=== PATIENT | male | born 1960 | race Caucasian/White ===

== ENCOUNTER 2019-10-20 01:30 | Inpatient (IN) | payer BC, OTHER ==
[~2019-10-20] VITALS: Ht 185.4 cm; Wt 116.1 kg
--- NOTE | ~2019-10-20 | DS ---
[facility] [address] [place], [place] [address] Draft ADMISSION DATE: 10/20/2019 DISCHARGE DATE: 10/28/2019 REASON FOR ADMISSION: This 59-year-old white man has had increasing complaints of abdominal pain, presented to the emergency room, was evaluated by Dr. Hampton on October 20, 2019, showing free air on plain chest x-ray and subsequent CT scan of the abdomen showing considerable amount of free air and probable perforated diverticulitis. He was noted to have an elevated D-dimer of greater than 5000. His pulmonary CT angiogram showed no evidence of pulmonary embolism. He had generalized peritonitis and lactic acid level of 6.9, and was admitted by ky for further evaluation and care. PERTINENT PHYSICAL EXAMINATION: GENERAL: This is a tall white male with a torres sheridan. He looked moderately uncomfortable. HEENT: Mucous membranes are very dehydrated and dry. Trachea midline. CHEST: Clear. VITAL SIGNS: Respiratory rate was 24, pulse oximetry 93% on 4 L nasal cannula. ABDOMEN: Obese, but not excessively distended. Incisions from prior laparoscopic cholecystectomy were noted. Palpation showed generalized tenderness and firmness without focal mass or focal tenderness. CT scan showed multiple loculated pockets of fluid, intraabdominal inflammatory changes and probable perforated diverticulitis. HOSPITAL COURSE: He was aggressively fluid resuscitated and given broad-spectrum antibiotic meropenem. He underwent laparoscopy for intended laparoscopic washout and placement of drains, was found to have 2 profound level of inflammation and problem and was converted to laparotomy. He was noted to have multiple interloop abscesses of the abdomen including a right subphrenic abscess. Complete washout of the abdominal contents was undertaken and resection of perforated sigmoid diverticulitis with end colostomy (Jose Miguel procedure) was performed. Mobilization of splenic flexure was required. Placement of a 24-Italian BRAD gastrostomy tube was also undertaken. The operation was prolonged, complicated, and difficult. He was oliguric entering the operating room and had 100 mL of urine during the course of operation. He was returned to the Intensive Care Unit where his lactic acid level was improved, but he remained oliguric. He did require inotropic support during the course of operation to sustain his blood pressure and this was maintained postoperatively with Levophed. His urine output was responsive to multiple fluid bolus. His creatinine postoperatively was noted to be 2.41 with lactic acid of 3.9. His white count was markedly elevated to 20.6 with a bandemia of 81%. PATIENT NAME: HEATHER COREAS DISCHARGE SUMMARY DATE OF : 58 REPORT #: [id number] PHYSICIAN: EULOGIO LARES MD PCP: NO PRIMARY CARE PHYSICIAN REPORT IS CONFIDENTIAL AND NOT TO BE RELEASED WITHOUT AUTHORIZATION [facility] [address], [place] [address] Draft With persistent fluid administration and blood pressure support, his urine output began to improve and he became more alert and oriented. His creatinine began to decrease and his intravenous pressor support was able to be weaned off. He was maintained on single agent broad-spectrum antibiotic meropenem with the addition of Diflucan. He had decompression of his stomach with a gastrostomy tube. He was maintained with heparin subcutaneously and not with sequential compression device stockings as his D-dimer had been elevated and all the CT abdomen. CT pulmonary angiogram showed no sign of pulmonary embolus. Concern was maintained for possible deep venous thrombosis, for which sequential compression device stockings would likely result in embolism. He had progressive improvement, was able to leave the Intensive Care Unit where he was continually supported with IV fluids and ultimately monitoring of his ostomy for function. Drains that were placed in the subphrenic and pelvic area cleared and were removed. Once the air presented in the ostomy, his G-tube was capped and he was advanced to a liquid and ultimately a regular diet without problem. By the day of discharge, he is ambulating well. He has bilateral leg edema, which was evaluated by duplex ultrasound showing no sign of deep venous thrombosis. This was considered likely related to fluid administered during the course of resuscitation and will be addressed with Jen as an outpatient. He is managing his colostomy site well. The midline incision is healing well. He was transitioned from meropenem antibiotic to Cipro and Flagyl during the course of his hospitalization and will be discharged on those medications as well. He was restarted on his metformin once fully recovering. Followup plan, he is return to see me in approximately one month. Home health is organized for him to have assistance with his ostomy, though he is managing it pretty well already himself. As regards to his G-tube, he will flush that on a daily basis with tap water to maintain its patency. He understands that in time the colostomy will be able to be reversed. DISCHARGE MEDICATIONS: 1. Cipro 500 mg p.o. b.i.d., #14. 2. Flagyl 250 mg one p.o. t.i.d. with meals, #21. 3. Motrin 600 mg p.o. q.6 hours as needed for pain, #60. 4. Tylenol Extra Strength 500 mg two tablets p.o. q.6 hours as needed for pain, #60. 5. Lasix 20 mg p.o. daily, #10. 6. Potassium chloride 20 mEq p.o. daily, #10. 7. He will resume his usual medication of multivitamin daily. PATIENT NAME: HEATHER COREAS DISCHARGE SUMMARY DATE OF : 58 REPORT #: [id number] PHYSICIAN: EULOGIO LRAES MD PCP: NO PRIMARY CARE PHYSICIAN REPORT IS CONFIDENTIAL AND NOT TO BE RELEASED WITHOUT AUTHORIZATION [facility] [address] [place], [place] [address] Draft 8. Lisinopril hydrochlorothiazide 20/12.5 one p.o. daily. 9. Omeprazole 20 mg p.o. daily. 10. Metformin 500 mg p.o. b.i.d. DISCHARGE DIAGNOSES: 1. Severe sepsis related to perforated diverticulitis with multiple intraabdominal abscesses including right subphrenic abscess. 2. Status post laparoscopic evaluation with lavage, conversion to open laparotomy with drainage of intraabdominal abscesses, placement of drains, sigmoid resection with end colostomy and placement of gastrostomy tube. 3. History of hyperglycemia. 4. Hypertension. 5. Distant history of cholecystectomy. 6. Preoperative elevated D-dimer. Negative CT angiogram of lungs and subsequent negative venous duplex of lower extremities for deep venous thrombosis. MD RAYNA Astudillo/MODL /[id number] cc: MD Clemencia Martínez MD Daniel Adelman, PA [facility] Sayra Caballero MD Copies: SANCHEZ BANGURA MD, KELLY DEAN MD PATIENT NAME: HEATHER COREAS DISCHARGE SUMMARY DATE OF : 58 REPORT #: [id number] PHYSICIAN: EULOGIO LARES MD PCP: NO PRIMARY CARE PHYSICIAN REPORT IS CONFIDENTIAL AND NOT TO BE RELEASED WITHOUT AUTHORIZATION [address] [place], [place] [address] Draft SAYRA CABALLERO MD ~ PATIENT NAME: HEATHER COREAS DISCHARGE SUMMARY DATE OF : 58 REPORT #: [id number] PHYSICIAN: EULOGIO LARES MD PCP: NO PRIMARY CARE PHYSICIAN REPORT IS CONFIDENTIAL AND NOT TO BE RELEASED WITHOUT AUTHORIZATION
[~2019-10-20 01:30] MED LIST: ASPIR 8181 MG PO; FLAGYL500 MG PO; HYDROCODON-ACE1 EA10 PO; LEVAQUIN750 MG PO; LISINOPRIL-HCT1 EACH PO; METFORMIN HCL500 MG PO; MULTI VITAMIN1 EACH PO; NORCO 10-325 T1 EACH PO; NYSTATIN-TRIAMC15 GM TOP; OMEPRAZOLE20 MG PO; OSTERA TABLET1 EACH PO; SIMVASTATIN40 MG PO; ZOFRAN ODT8 MG PO
[2019-10-20] MEDS ORDERED: DICYCLOMINE HCL20 MG PO (01:39)
--- NOTE | 2019-10-20 09:15 | NUR ---
In to speak with Ty. He has not returned from surgery yet.
--- NOTE | 2019-10-20 10:42 | NUR ---
10/20/19 1042 Sneha Preciado 1022-PT ARRIVES TO PACU ON 6 L VIA MASK. PT RESPONSIVE TO VERBAL STIMULUS AND FALLS BACK ASLEEP EASILY. MULTIPLE DRAINS, COLOSTOMY SITE, MIDLINE INSCISION, G TUBE, NG TUBE AND BOOKER CATH IN PLACE. PT DENIES PAIN/NAUSEA. PT'S SKIN COLD AND CLAMMY. WARM AIR AND WARM BLANKETS PROVIDED. 1040-PT RESTS IN BED WITH EYES OPEN. PT WAKES TO VERBAL STIMULUS AND FOLLOWS COMMANDS. SNORING HEARD. FOGGING IN MASK PRESENT. VSS. TACHYCARDIA NOTED AND DRAFTING TEACHER AWARE IS
--- NOTE | 2019-10-20 11:45 | NUR ---
PT ARRIVED FROM PACU.REPORT RECEIVED FROM RUBBING BED OPERATOR. LEE DRAINS SHOWING SERIOUS ANGUINOUS DRANAGE. BOOKER CATHETER DRINAING DARK YELLOW URINE. G-TUBE DRAINING BROWN FLUID TO GRAVITY BAG. OSTOMY BAG SHOWS PINK/RED STOMA, NO DRAINAGE NOTED YET, GRAVITY BAG IN PLACE. MIDLNE INCISION DRESSING INTACT WITH SMALL AMOUNT OF SHADOWING. PT REPORTS 2/10 PAIN AND DENIES NEED FOR PAIN MEDICATION. PT REPORTS NAUSEA. SEE MAR FOR MEDICAITON GIVEN. BLOOD PRESSURES SOFT, CONSULTED, ORDERS PLACED FOR PRN DRIP. WILL CONTINUE TO MONITOR. PT WEANED TO 3L O2 BY NC AT 1150. DOPPLER PUSES TO LOWER EXREMITIES. BRUSIES AND RUDDINESS NOTED TO BILATER LOWER EXTREMITIES, PT STATES "ITS FROM OLD FLEA BITES I SCRATCHED." IV FLUIDS STARTED. THIS RN AT BEDSIDE.
--- NOTE | 2019-10-20 12:00 | NUR ---
THIS RN REMAINS AT BEDSIDE. PT CONTINUES TO REPORTS 2/10 PAIN AND STATES "I DON'T NEED PAIN MEDICAITON UNTIL IT IS 4.5/10." BLOOD PRESSURES REMAIN STABLE. LEVOPHED DRIP NOT YET STARTED, WILL CONTINUE TO MONITOR. PT CONTINUE TO REPORT NAUSEA, PHENEGRAN GIVEN. PT REMAINS ON 3L O2 BY NC WITH O2 SATURATIONS ABOVE 92. DRESSING TO MID LINE INCISION UNCHANGED. PT DIAPHORETIC. BLOOD SUGAR TAKEN = 249. DRESING TO LEFT HAND IV LOOSE R/T DIAPHORESIS, DRESSING CHANGED PER PROTOCOL. LEE DRAINS, NG TUBE, OSTOMY AND G-TUBE UNCHANGED. THIS RN REMAINS AT BEDSIDE.
--- NOTE | 2019-10-20 12:28 | NUR ---
PT REPORTS DRY MOUTH, MOUTH SWAB PROVIDED. PT QUICKLY DRIFTS OFF TO SLEEP, SNORING NOTED. HOB ELEVATED TO 30 DEGREES. PT WEANED TO 1L O2 BY OXYMASK, O2 SATURATIONS REMAIN ABOVE 92%. PT REPORTS 5/10 PAIN (SEE MAR FOR MEDICATION GIVEN). PT DENIES NAUSEA. ASSESSMENT DONE. DRESSING TO MIDLINE INCISION REMAINS UNCHANGED. LEE DRAINS SHOWING SERIOUS ANGUINOUS DRAINAGE. 30ML SERIUOS ANGUINOUS DRAINAGE REMOVED FROM LEFT LEE DRAIN #2. BOOKER CATHETER DRINAING DARK YELLOW URINE. G-TUBE DRAINING BROWN FLUID TO GRAVITY BAG. OSTOMY BAG SHOWS PINK/RED STOMA, NO DRAINAGE NOTED YET, GRAVITY BAG IN PLACE. PT RESTING WITH EYES CLOSED. SNORING NOTED. BED RAILS UP. CALL LIGHT WITHIN REACH.
--- NOTE | 2019-10-20 13:30 | NUR ---
ASSESMENT DUE. PT REPORTS 5/10 PAIN, SEE MAR FOR MEDICAITON GIVEN. PT DENIES NAUSEA. MID LINE DRESSING SHOWS SMALL AMOUNT OF SHADOWING. LEE DRAIN #1 DRINAING SEROUSANGUINOUS DRAINAGE, LEE DRAIN #2 DRAINING SERIOUS ANGUINOUS DRAINAGE. URINE OUTPUT MINIMAL. MD CURRENTLY IN PROCEEDURE, CALL OUT TO MD, AWAITING RETURN CALL. PT PULLED IV IN LEFT HAND. GAUZE AND COBAN APPLIED. PT REMAINS ON 1 LITER O2 BY OXYMASK, O2 SATURATIONS ABOVE 92%. ABX STARTED (INFUSING VIA RAC IV). BED RAILS UP. CALL LIGHT WITHIN REACH.
--- NOTE | 2019-10-20 14:14 | NUR ---
norepi drip started at 4 mcg/min for BP of 84/48 (57).
--- NOTE | 2019-10-20 14:30 | NUR ---
ASSESSMENT DUE. IV STARTED IN LEFT HAND PER PROTOCOL, BLOOD RETURN NOTED. LEFT HAND INFUSING LR FLUIDS, ABX INFUSING THROUGH RIGHT AC IV. LEVOPHED DRIP INFUSING THROUGH LAC IV AT A RATE OF 4MCG/MIN. BP NOW 99/59 (66). PT AWAKENS TO VOICE, REPORTS FEELING DIZZY. PT REPORTS 4/10 PAIN AND DENIES NEED FOR PAIN MEDICATIONS AT THIS TIME. PT WEANED TO [place] AIR WITH O2 SATURATIONS MAINTAINING ABOVE 90%. BED RAILS UP. CALL LIGHT WITHIN REACH.
--- NOTE | 2019-10-20 15:02 | EKG ---
[facility] [address] [place] [address] Signed Sinus tachycardia with occasional premature ventricular complexes Possible Left atrial enlargement Borderline ECG No previous ECGs available Confirmed by ZENON RUBY MD ([id number]) on 10/20/2019 3:02:41 PM Electronically Signed By: ZENON RUBY MD 10/20/19 1502 PATIENT NAME: HEATHER COREAS Electrocardiogram DATE OF : 58 PHYSICIAN: ZENON RUBY MD REPORT #: [id number] REPORT IS CONFIDENTIAL AND NOT TO BE RELEASED WITHOUT AUTHORIZATION
--- NOTE | 2019-10-20 15:04 | NUR ---
PT DROPS TO 88% ON ROOM AIR WHILE SLEEPING. PT PLACED BACK ON 1L O2 BY OXY MASK. PT REPORTS 6/10 PAIN, SEE MAR FOR MEDICAITON GIVEN. BED RAILS UP. CALL LIGHT WITHIN REACH. CONTINUING TO AWAIT CALL FROM MD FOR UPDATE REGARDING URINE OUTPUT.
--- NOTE | 2019-10-20 15:21 | NUR ---
PTS SON CALLIE CALLED WITH UPDATE. CALLIE STATES HIS QUESTIONS HAVE BEEN ANSWERED. DR. LARES RETURNED CALL, ORDERS FOR 500ML FLUID BOLUS NOW TO BE REPEATED IF URINE OUTPUT DOES NOT RESPOND. ORDERS PLACED.
--- NOTE | 2019-10-20 16:20 | NUR ---
AFTERNOON ASSESSMENT DUE. PT RESTING IN BED WITH EYES CLOSED, SNORNING NOTED. PT AWAKENS TO VOICE. REPORTS 6/10 PAIN, SEE MAR FOR MEDICATION GIVEN. DRAINS EMPTIED (SEE I/Os). BOOKER EMPTIED, SAMPLE SENT TO LAB. PT CONTINUES TO HAVE INSUFFICIENT URINE OUTPUT. 2ND 500ML BOULS STARTED PER MD ORDER. MD AWARE OF PT URINE OUTPUT. PT DENIES NAUSEA. MIDLINE INCISION SHOWS NO CHANGE. SMALL AMOUNT OF SHADOWING NOTED. PT CONTINUES TO BE DIAPHROETIC, MID LINE DRESING INTACT, BUT LOOSE. IV DRESSING TO RIGHT AC LOOSE, IV DRESSING CHANGED PER PROTOCOL. LEVOPHED DRIP REMAINS AT 4MCG/MIN WITH MAPs MAINTAINING ABOVE 65. PT COOL AND CLAMY. BED RAILS UP. CALL LIGHT WITHIN REACH.
--- NOTE | 2019-10-20 17:00 | NUR ---
THIS RN TO ROOM TO CHECK ON PT. PT REPORTS 4/10 PAIN AND DENIES NEED FOR PAIN MEDICAITON AT THIS TIME. URINE OUTPUT 18ML OVER THE PAST HOUR. LEVOPHED DRIP REMAINS AT 4MCG/MINUTE. UROMETER CATHETER BAG PLACED TO REPLACE REGULAR DRAINAGE BAG, STERILE TECHNIQUE USED. PT REMAINS COOL AND DIAPHORETIC. NO ADDITIONAL REQUESTS OR COMPLAINTS AT THIS TIME. CALL LIGHT WIHTIN REACH. BED RAILS UP.
--- NOTE | 2019-10-20 17:52 | NUR ---
MD CALLED AND UPDATED REGARDING URINE OUTPUT, DIAPHORESIS GENERAL PT CONDITION. ORDERS TO ADMISTER ADDITIONAL 500ML LR BOLUS. ORDERS ENTERED. ABX INFUSION COMPLETE. RIGHT AC IV SALINE LOCKED. ALCOHOL CAPS APPLIED. PT REPORTS 6/10 PAIN BUT DECLINES ADDIITONAL PAIN MEDICAITONS AT THIS TIME. PT AWAKE AND TELLING JOKES, QUICKLY FALLS BACK TO SLEEP, SNORING NOTED. NO ADDITIONAL REQUESTS OR COMPLAINTS. BED RAILS UP. CALL LIGHT IRENA CHASE.
--- NOTE | 2019-10-20 18:20 | NUR ---
PT RESTING IN BED. BOOKER EMPTIED OF 8ML URINE. MD AWARE. 500ML LR BOLUS STARTED. LEE DRAINS EMPTIED OF SERIOUS ANGUINOUS FLUID. G-TUBE DRAINING BROWN THICK MUCOUS, EMPTIED. MOUTH SWABS PROVIDED FOR PT RELATED TO "SOAR THROAT" AND DRY MOUTH. PT DENIES ADDITIONAL REQUESTS OR COMPLAINTS. CALL LIGHT IN PTS HAND.
--- NOTE | 2019-10-20 18:22 | NUR ---
PT HERE FOR PERFORATED BOWEL RELATED TO DIVERTICULITIS. SURGERY THIS SHIFT INCLUDING COLECTOMY AND G-TUBE PLACEMENT. PT REMAINS NPO WITH MOUTH SWABS AT BEDSIDE. NG TUBE DRAINING TO LOW INTERMITTANT SUCTION, 50ML OF DARK GREEN/BLACK DRAINAGE OUT THIS SHIFT. PT REMAINS ON 1L O2 BY OXYMASK, DROPS TO 88% WHEN SLEEPING ON ROOM AIR. MID LINE INCISION WITH ACTICOAT, OPSITE AND ESTRADA, INTACT, SMALL AMOUNT OF SHADOWING NOTED. PRN PAIN MEDICAITON GIVEN FOR 4-6/10 PAIN. [address] ON RIGHT AND LEFT SIDE OF ABDOMEN DRAINING SERIOUS ANGUINOUS DRAINGE. COLOSTOMY IN PLACE, STOMA PINK/RED, NO DRAINAGE THIS SHIFT. G-TUBE IN PLACE DRAINING BROWN MUCOUSY DRAINAGE TO GRAVITY BAG. BOOKER CATHETER DRAINING TO GRAIVTY, PLACEMENT HIGH FOR HYPOSPADIAS. URINE NOT QUANTITY SUFFICIENT THIS SHIFT, 500ML LR BOLUSES GIVEN X3. PT COOL, CLAMMY AND DIAPHORETIC. SCHEDULED IV ABX GIVEN. DOPLER PULSES FOUND TO LOWER EXTREMITIES. PT OREINTED BUT DROWSY. LEVOPHED DRIP IN PLACE FOR CARDIOVASCULAR SUPPORT, INFUSING AT 4MCG/MIN TO MAINTAIN MAP ABOVE 65. PTS FAMILY UPDATED. PT HAS YET TO USE CALL LIGHT.
--- NOTE | 2019-10-20 19:44 | NUR ---
SHIFT REPORT RECEIVED. PATIENT RESTING IN BED. APPEARS TO BE SLEEPING COMFORTABLY. LAST BP 113/60 (69), LEVOPHED TITRATED TO 3 MCG/MIN.
--- NOTE | 2019-10-20 19:45 | NUR ---
IN TO SEE ZACH. ORDER FOR REMOVAL OF NG TUBE RECEIVED. DISCUSSED POOR URINE OUTPUT. GOALS OF 10 - 20 ML/HR PER MD.
--- NOTE | 2019-10-20 20:30 | NUR ---
SPOKE WITH ABOUT PATIENT'S MIDLINE DRESSING NEEDING REPLACED. ORDERS TO REDRESS NEEDED AND USE OF ABD BINDER IF NECESSARY.
--- NOTE | 2019-10-20 21:00 | NUR ---
PATIENT SLEEPING SOUNDLY. WAKES EASILY WHEN RN ENTERS THE ROOM. NG TUBE REMOVED PER ORDERS FROM . PATIENT TOLERATED WELL. ICE CHIPS PROVIDED. PATIENT DENIES PAIN, NO NAUSEA. ABD IS MODERATELY DISTENDED. MIDLINE INCISION IS SATURATED IN CLEAR LIQUID. DRESSING REMOVED AND REPLACED WITH MEPILEX AND 2 OBSITES. LEE ON RIGHT EMPTIED FOR 25 ML SEROSANG FLUIDS. LEFT LEE HAD 60 ML SERSANG, WITH SMALL CLOTS. G TUBE IS DRAINING TO GRAVITY, 100 ML THICK BILE COLORED DRAINAGE. URINE OUTPUT 25 ML, BOOKER CARE DONE. IV FLUIDS PER ORDER, SITE WNL X3. LEVOPHED AT 2 MCG/MIN. MAP >65. PATIENT DENIES ANY NEEDS AT THIS TIME. WEARING 2L NC, O2 SAT 88% ON RA.
--- NOTE | 2019-10-20 21:00 | NUR ---
CALLED, ORDERS FOR 500 ML BOLUS RECEIVED PRN FOR URINE OUTPUT LESS THAN 20 ML/HR. REPEAT NEEDED. VERIFIED VIA REPEAT BACK.
--- NOTE | 2019-10-20 23:22 | NUR ---
PATIENT RESTING IN BED. AWAKE WHEN RN ENTERED ROOM. REPORTS FEELING MORE ALERT AND HAS BEEN EATING SOME ICE. ENOCURAGED TO GO SLOWLY. DENIES NAUSEA. REPORTS PAIN 5/10. STATES HE IS COMFORTABLE AND DENIES NEED FOR PRN PAIN MEDS OR AN ICE PACK AT THIS TIME. URINE OUTPUT 18 ML THE LAST HOUR. IV ABX INFUSING. LEVOPHED AT 2 MCG/MIN, LAST BP 101/68 (76). IV FLUIDS PER ORDER. SITES WNL X3.
--- NOTE | 2019-10-21 00:15 | NUR ---
PATIENT MORE ALERT THAN PREVIOUS. ORIENTED X3. NO NAUSEA. REPORTS PAIN 5/10, ICE PACKS APPLIED TO ABD PER REQUEST. DRESSING ON MIDLINE IS CDI, LEE DRAINS DRAINING WELL, SEROSANG OUTPUT. BLACK BILE COLORED MUCUS NOTED FROM G-TUBE. URINE OUTPUT MEETING 20 ML/HR GOAL. PATIENT EATING ICE CHIPS FOR COMFORT. DENIES ANY NEEDS AT THIS TIME.
--- NOTE | 2019-10-21 02:15 | NUR ---
PATIENT REPORTS DIFFICULTY SLEEPING NOW. ENCOURAGED TO REST TO AVOID GETTING DAYS AND NIGHTS SWITCHED. PATIENT REPORTS ADEQUATE PAIN CONTROL. NO NAUSEA. BP STABLE, LEVOPHED PLACED IN STAND BY AT THIS TIME.
--- NOTE | 2019-10-21 04:15 | NUR ---
PATIENT REPORTS SLEEPING OFF AND ON. APPEARS TO BE IN GOOD SPIRITS. ORIENTED X4. REPORTS PAIN 5/10, FRESH ICE PACKS APPLIED TO ABD. MIDLINE DRESSING CDI. DRESSINGS COVERING LEE DRAINS ARE INTACT. GAUZE AROUND G-TUBE, MINIMAL DRAINAGE. IV FLUIDS PER ORDER, SITE WNL. BP WNL WITHOUT PRESSOR AT THIS TIME. URINE OUTPUT CONTINUES TO MEET 20 ML/HR GOAL. PATIENT DENIES ANY NEEDS AT THIS TIME. CALL LIGHT IN REACH.
--- NOTE | 2019-10-21 05:40 | NUR ---
RIGHT SIDE LEE DRAINED FOR 25 ML SEROSANG OUTPUT. LEFT LEE DRAINED FOR 55 ML SEROSANG OUTPUT. G-TUBE DRAINING TO GRAVITY, 500 ML THICK BILE WITH SOME WHITE/CLEAR LUMPS. PATIENT REPORTS TOLERABLE PAIN LEVEL AT 5/[address] IN [address]. PATIENT DENIES ANY NEEDS.
--- NOTE | 2019-10-21 05:55 | NUR ---
PATIENT UPDATE PROVIDED TO . ORDERS RECEIVED FOR IV TYLENOL PRN PAIN. VERIFIED VIA REPEAT BACK METHOD.
--- NOTE | 2019-10-21 06:15 | NUR ---
PATIENT REPORTS PAIN 5/10 AND TOLERABLE. PRN TYLENOL PROVIDED PER ORDER. PATIENT EATING ICE AND DENIES ANY NAUSEA. ABD IS MODERATELY DISTENDED WITH HYPOACTIVE BOWEL SOUNDS. URIEN OUTPUT REACHING THE 20 ML/HR GOAL. PATIENT DENIES ANY NEEDS AT THIS TIME. CALL LIGHT IN REACH.
--- NOTE | 2019-10-21 06:40 | NUR ---
NOTIFIED OF INCREASED BUN AND HOME OFFICE CLAIM SPECIALIST. NO NEW ORDERS.
--- NOTE | 2019-10-21 08:45 | NUR ---
INTO PT ROOM FOR MORNING ASSESSMENT AND VITALS. PT IS SLIGHTLY TACHYCARDIC AT 100-110 BPM. TEMPERATURE IS 97.8. PT STATES "I AM FEELING ALOT BETTER, I'M ON THE MEND". PT SKIN IS DRY AND WARM, SMALL AMOUNT OF EDEMA NOTED IN BOTH HANDS AND FEET, NON-PITTING. PT STATES IT IS "MORE PUFFY THAN NORMAL". LUNGS ARE CLEAR THROUGHOUT AND SLIGHTLY DIM IN BASES. LEAD TECHNICAL WRITER SHOWS SINUS TACHYCARDIA. PT STATES THEIR PAIN IS RATED AT A 6 AND THAT THE TYPE OF PAIN CHANGES FROM ACHEY TO SHARP AND IT RADIATES FROM LEFT ABDOMEN TO RIGHT ABDOMEN. PT STATED THEY ONLY WANT MORPHINE IF THEY CAN'T CONTROL THEIR PAIN. PT STATES PAIN IS CURRENTLY CONTROLLED WHILE RESTING IN BED WITH ICE PACKS ON ABDOMEN. BOTH LEE DRAINS EMPTIED OF SEROSANGUINOUS DRAINAGE AND RECORDED. UO IS 26 CC AT 0845 AND 100 CC MORE OUT AT 0945, BOTH AMOUNTS RECORDED. G-TUBE DRAINED OF BLACK/BROWN THICK FLUID, AMOUNT RECORDED. DR. LARES IN TO SEE PT AND DISCUSS PT SITUATION. PT APPROVED TO START EATING JELLO. PT GIVEN TOOTH BRUSH AND CHAP STICK. PT REPORTS NO FUTHER NEEDS AT THIS TIME, WILL CONTINUE TO MONITOR. JELLO.
--- NOTE | 2019-10-21 09:43 | NUR ---
MED REC COMPLETED WITH PHARMACY REFILL HISTORY AND PATIENT INTERVIEW. DICYCLOMINE WAS STARTED THIS WEEK.
--- NOTE | 2019-10-21 11:00 | NUR ---
INTO PT ROOM TO HANG NEW BAG OF LR. RATE SET TO 125/HR. PT COMPLAINS THAT THE PUMP SOUNDS LIKE IT IS TALKING TO HIM. PT IS IN SEMI-SALMERON POSITION AND EATING ICE CHIPS. PT STATED THE JELLO IS SITTING WELL ON HIS STOMACH BUT HE DOESNT HAVE MUCH OF AN APPETITE. PT REPORTS NO FURTHER NEEDS AT THIS TIME. WILL CONTINUE TO MONITOR. BED IN LOWEST POSITON WITH BED RAILS UP. CALL LIGHT AND BEDSIDE TABLE WITHIN REACH.
--- NOTE | 2019-10-21 11:17 | NUR ---
SPOKE WITH PATIENT IN ROOM. PATIENT LIVES ALONE, WITH TWO STEPS INTO HOME. NO AMBULATION ISSUES NORMALLY, USES NO DME. DRIVES. IS EMPLOYED. MISSED AN APPOINTMENT WITH DR ALVAREZ YESTERDAY HE WAS TOO SICK TO WAIT TO BE SEEN THERE. IS WORRIED ABOUT THAT. ASSURRED HIM I WILL CALL OFFICE AND EXPLAIN. HE HAS FRIENDS WHO CAN HELP HIM OR TAKE HIM TO APPOINTMENTS UNTIL HE CAN DRIVE. HIS SON WAS HERE WHEN HE GOT SICK, WENT HOME YESTERDAY. HE MIGHT COME BACK IF NEEDED. HE DENIES PROBLEMS WITH COST OF MEDS, FOOD OR UTILITIES. HE FEELS SAFE TO RETURN HOME. CALLED [facility] TO UPDATE THEM. NEW APPOINTMENT SCHEDULED FOR ThursdayOctober AT 2:30PM MADE. GIVEN TO PATIENT AND INSPECTOR CASING ENTERED IN DISCHARGE INSTRUCTIONS. CM WILL FOLLOW NEEDED.
--- NOTE | 2019-10-21 12:01 | PATH ---
[facility] [address], [place] [address] Signed SPECIMEN(S): A RECTO SIGMOID RESECTION SPECIMEN SOURCE: A. RECTO SIGMOID RESECTION CLINICAL HISTORY: Perforated colon. FINAL PATHOLOGIC DIAGNOSIS: Rectosigmoid perforated diverticula, segmental resection: - Colonic mucosa with diverticulosis and adjacent acute inflammation/abscess formation (diverticulitis). - Transmural hemorrhage and fibrinopurulent debris on the serosal surface, suggestive of perforation. - Surgical margins free of acute inflammation. DDF:emb:C2NR MICROSCOPIC EXAMINATION: Histologic sections of all submitted blocks are examined by light microscopy. These findings, together with the gross examination, support the pathologic diagnosis. GROSS DESCRIPTION: The specimen, labeled "TK," and designated on the requisition "rectosigmoid perforated diverticula," is received in formalin and consists of one unoriented, previously opened piece of large bowel that measures 14 cm in length and up to 4.3 cm in inner circumference. The specimen is under the serosal surface is dark red and congested. Almost entire serosal surface is covered with fibroadipose tissue. The fibroadipose tissue is dusky red, indurated and partially covered with yellow-francis, adherent, plaque-like material. The mucosa is pink-francis, folded and shows numerous diverticula. Two of them are probe patent and show possible perforation. The wall measures up to 0.7 cm in thickness. Cassette summary: (A1-A2) The surgical resection margins, shave (A3-A5) Diverticula with possible perforation. JS (under the direct supervision of a pathologist) The Gross Description was prepared using a voice recognition system. The report was reviewed for accuracy; however, sound-alike word errors, addition PATIENT NAME: HEATHER COREAS PATHOLOGY DATE OF : 58 REPORT #: [id number] PHYSICIAN: SIN GARCIA PCP: NO PRIMARY CARE PHYSICIAN REPORT IS CONFIDENTIAL AND NOT TO BE RELEASED WITHOUT AUTHORIZATION [facility] [address] [address] Signed and/or deletions may occur. If there is any question about this report, please contact Client Services. PERFORMING LABORATORY: The technical component was performed by [facility] [id number] (Ladle Liner Helper: Ronna Rios MD; CLIA# [id number]). [facility], [address] [place] [id number] (CLIA# [id number]). Diagnostician: Clement Becerra DO Pathologist Electronically Signed 10/21/2019 Copies: ~ PATIENT NAME: HEATHER COREAS PATHOLOGY DATE OF : 58 REPORT #: [id number] PHYSICIAN: [facility] PCP: NO PRIMARY CARE PHYSICIAN REPORT IS CONFIDENTIAL AND NOT TO BE RELEASED WITHOUT AUTHORIZATION
--- NOTE | 2019-10-21 12:15 | NUR ---
INTO PT ROOM FOR NOON ASSESSMENT. ASSESSMENT IS SAME WITH EXCEPTION OF THE FOLLOWING. PT CURRENTLY RATES PAIN AT 5/10 AND DECLINED PRN MORPHINE, STATING "I AM ABLE TO WAIT FOR THE TYLENOL". PT STATES THAT THE ICE PACKS ARE EFFECTIVE IN MANAGING PAIN. PT IS STILL SLIGHLTY TACHCARDIC BETWEEN 100-105 BPM. LUNG BASES SOUND SLIGHTLY MORE DIMINISHED THAN UPPER LOBES ON BOTH SIDES. PT EDUCATED ON HOW TO USE I.S. DEVICE AND HAS BEEN TOLD TO USE IT 10X PER HOUR. PT ABLE TO CORRECTLY DEMONSTRATE HOW TO USE DEVICE. PT REPORTS NO FURTHER NEEDS AT THIS TIME. BED IS IN LOWEST POSTION WITH CALL LIGHT AND BEDSIDE TABLE WITHIN REACH. PT INFORMED OF PLAN FOR AFTERNOON, INVOLVING SHORT AMBULATION AND CHANGING LINENS AND GETTING A BEDD BATH. PT AGREES TO THIS PLAN.
--- NOTE | 2019-10-21 16:30 | NUR ---
INTO PT ROOM FOR ASSESSMENT. FINDINGS SAME LAST ASSESSMENT. PT ALSO GIVEN PARTIAL BED BATH AND CLEAN GOWN AND CLEAN LINEN. PT ABLE TO ASSIST WITH MOST OF BED BATH. AFTER BATH, PT STATES "I FEEL LIKE A HUMAN BEING AGAIN". PT ABLE TO USE PILLOW STOMACH BRACE AND MOVE TO SIT ON SIDE OF BED. PT ABLE TO STAND USING WALKER AND 2 PERSON STANDBY ASSIST. PT ABLE TO STAND FOR SEVERAL MINUTES AND TOLERATED IT WELL WITH NO DIZZINESS. PT RETURNED TO SITTING POSITION IN BED IN SEMI-SALMERON POSITION. ICE CHIPS AND WATER CUP REFILLED. NEW ICE PACKS PROVIDED. AFTER STANDING AND BED BATH PT AGREED TO 5 MG OF PRN MORPHINE HIS PAIN WAS AT 7/10. BED IN LOWEST POSITION WITH CALL LIGHT AND BEDSIDE TABLE WITHIN REACH. PT REPORTS NO FURTHER NEEDS AT THIS TIME. WILL CONTINUE TO MONITOR AND WILL REASSESS PAIN AFTER MORPHINE.
--- NOTE | 2019-10-21 18:11 | NUR ---
INTO PT ROOM TO FOR VS AND I&Os. OUTPUT FROM G TUBE IS CLEAR GREEN WITH SYRUP LIKE CONSISTENCY. R AND L LEE DRAINS ARE BOTH DRAINING SEROUSANGUINOUS FLUID. URINE IS CLEAR AND YELLOW. ALL AMOUNTS RECORDED. PT REMAINS AFEBRILE AT 98.5 AND HEART RATE IS IN 90s. PT STATE THEIR PAIN IS DOWN TO A 4-5/10 AFTER THE 5 MG OF MORPHINE AND DOES NOT DESIRE MORE AT THIS TIME. PT TOLD TO USE CALL LIGHT IF HE CHANGES HIS MIND AND THAT THE MORPHINE IS THERE TO HELP HIM BETTER MANAGE PAIN. PT STATES HIS UNDERSTANDING TO THS AND AGREED TO USE LIGHT IF PAIN WORSENS. PT REPORTS NO FURTHER NEEDS AT THIS TIME. BED IS IN LOWEST POSITON WITH CALL LIGHT AND BEDSIDE TABLE WITHIN REACH.
--- NOTE | 2019-10-21 19:30 | NUR ---
PATIENT RESTING IN BED WATCHING TV. REPORTS ADEQUATE PAIN CONTROL. DENIES ANY NEEDS OR CONCERNS AT THIS TIME. CALL LIGHT IN REACH.
--- NOTE | 2019-10-21 20:30 | NUR ---
IN TO SEE PATIENT. NO NEW ORDERS.
--- NOTE | 2019-10-21 21:00 | NUR ---
PATIENT ALERT AND ORIENTED. RESTING IN BED, EATING ICE CHIPS. DENIES NAUSEA. REPORTS PAIN 5/10, PRN TYLNEOL PROVIDED. IV FLUIDS PER ORDER, SITES WNL X3. ABD IS MODERATELY DISTENDED. MINIMAL OUTPUT IS BOTH LEE DRAINS. >700 MLS OUT IN G-TUBE. PATIENT EATING ICE AND DRINK WATER. DRAINAGE IS BLACK IN COLOR WITH WHITE MUCOUS LOOKING CLOTS. URINE OUTPUT QS, IMPROVED FROM PREVIOUS NIGHT. COLOR IS CLEAR YELLOW. DRESSING ON MIDLINE IS CDI. GAUZE ON LEE SMALL AMOUNT OF DRAINAGE. G-TUBE SITE A SMALL AMOUNT OF GAUZE PLACED TO PROTECT SKIN. BOOKER CARE DONE. PATIENT DENIES ANY FURTHER NEEDS AT THIS TIME. CALL LIGHT IN REACH.
--- NOTE | 2019-10-22 00:05 | NUR ---
PATIENT SLEEPING SOUNDLY. ALLOWED TO REST. LEE DRAINS WNL X2. URINE OUTPUT QS. G-TUBE DRAINING FREELY. VS STABLE. TOLERATING 1L NC. CALL LIGHT IN REACH.
--- NOTE | 2019-10-22 02:42 | NUR ---
PATIENT PROVIDED WITH FRESH ICE WATER. REPORTS SLEEPING WELL THE LAST COUPLE HOURS. ADEQUATE PAIN CONTROL. DENIES ANY NEEDS. CALL LIGHT IN REACH.
--- NOTE | 2019-10-22 04:08 | NUR ---
PATIENT REPORTS PAIN INCREASED, 6/10. APPEARS UNCOMFORTABLE. FRESH ICE PACKS PROVIDED AND PRN IV TYLENOL. NO NAUSEA. G-TUBE DRAINING FREELY. PATIENT TAKING IN MODERATE AMOUNT OF ORAL LIQUIDS. URINE OUTPUT IMPROVED. LEE SITES WNL X2. IV FLUIDS PER ORDER, SITE WNL. PATIENT CONTINUES TO REQUIRE 1L NC. ENCOURAGED IS USE.
--- NOTE | 2019-10-22 06:12 | NUR ---
LAB IN FOR MORNING BLOOD DRAW. PATIENT REPORTS ADEQUATE PAIN CONTROL. FRESH ICE PACKS PROVIDED. IV ABX PER ORDER, SITE WNL. LEFT AC IV SITE IS PAINFUL, DC'D AT THIS TIME. WNL.
--- NOTE | 2019-10-22 08:57 | NUR ---
IV SITES ARE INTACT, NO REDNESS OR SWELLING NOTED, FLUIDS AND FLUSHES INFUSE EASILY, PT DENIES PAIN AT EITHER SITE. PT REPORTS 5/10 ABD PAIN AND IS WILLING TO TAKE MORPHINE FOR PAIN CONTROL, 6 MG IV MORPHINE GIVEN. PT REPORTS SOME NAUSEA THIS AM, 8 MG IV ZOFRAN GIVEN. PT IS ALERT AND ORIENTED X4, COOPERATIVE AND POLITE. MIDLINE INCISION DRESSING IS INTACT, MINIMAL DRAINAGE NOTED. G-TUBE IS DRAINING LIGHT GREEN FLUID, SITE IS INTACT, PROTECTED WITH GAUZE. LEE DRAINS INTACT, MINIMAL DRAINAGE NOTED. VITALS ARE WNL, PT DENIES SOB.
--- NOTE | 2019-10-22 11:43 | NUR ---
12.5 mg iv Phenergan given for pt c/o nausea. 1000mg IV acetimenophen given for generalized discomfort 11/22.
--- NOTE | 2019-10-22 11:50 | NUR ---
chowdhury cath removed per order. pt heidi well, cath intact.
--- NOTE | 2019-10-22 12:05 | NUR ---
full report given to Selma MAZARIEGOS on Med-Surg. all questions answered.
--- NOTE | 2019-10-22 12:15 | NUR ---
pt transported via bed to room 122 on med-surg. all personal belongings went with pt. pt remains alert and oriented x4, polite and cooperative. pt heidi move well.
--- NOTE | 2019-10-22 21:00 | NUR ---
pt very restless, c/o 8/ abd pain, medicated with IV Tylenol. Walking in room, Back to bed. WIll complete assessment and do 2100 meds at 2230 or so as discussed with pt. vitals to be done at that time too. fresh water and call light at bedside. Pt on room air, safety reasurred, 2jp and Gtube patent. hob elevted to his comfort
--- NOTE | 2019-10-22 22:00 | HP ---
[facility] [address], [place] [address] Signed ADMISSION DATE: 10/20/2019 TIME: 5:15 a.m. PROBLEM: Perforated viscus, probably perforated diverticulitis. 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 Hampton with complaints of abdominal pain. He was found to have free air on upright chest x-ray and a CT scan was performed, which showed findings suggestive of possible perforated diverticulitis. The patient has been having vague abdominal pain for the past several days, was treated by his primary provider with dicyclomine. The patient was noted to have an elevated lactic acid level 6.9 (subsequently 3.2 after fluid resuscitation and IV antibiotics). White blood count was noted at 1:46 a.m. to be 13.0 with hematocrit of 51.3. His INR was noted to be 1.1, but a D-dimer quantitative was greater than 5000. On that basis, additional evaluation included a pulmonary angiogram by CT scan as well as additional visualization of the abdominal contents. This showed no evidence of pulmonary embolism. A urinalysis was unable to be obtained as the patient has significant hypospadias and anuria... His emergency room course included greater than 3 L of intravenous fluid administration and administration of broad-spectrum antibiotic meropenem as well as Pepcid intravenously administered. Blood cultures were obtained. The patient is noted on 12-lead EKG to have sinus tachycardia with occasional PVCs and possible left atrial enlargement. There is no sign of acute ischemic change. REVIEW OF SYSTEMS: The patient denies focal pain, only this generalized abdominal pain. He feels somewhat improved compared to his presentation. SOCIAL HISTORY: He is . 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 He lives in [place]. PHYSICAL EXAMINATION: GENERAL: A very tall white man with a torres sheridan, who looks moderately uncomfortable at this time. HEENT: Mucous membranes are still quite dry. His trachea is midline. Chest shows Electronically Signed By: EULOGIO LARES MD 10/22/19 2200 PATIENT NAME: HEATHER COREAS HISTORY AND PHYSICAL DATE OF : 58 REPORT #: [id number] PHYSICIAN: EULOGIO LARES MD PCP: NO PRIMARY CARE PHYSICIAN REPORT IS CONFIDENTIAL AND NOT TO BE RELEASED WITHOUT AUTHORIZATION [facility] [address], [place] [address] Signed normal respiratory excursion. His respiratory rate is 24 at 5:15 a.m. Pulse oximetry 93% on 4 L nasal cannula oxygen. ABDOMEN: Obese, but not extensively distended. He has incisions from prior laparoscopic cholecystectomy by Dr. Ely. Palpation shows general firmness. No focal tenderness or mass. LABORATORY STUDIES: As previously noted. A CT scan was reviewed in detail, which shows a fair amount of intraabdominal free air. There are multiple loculated pockets of fluid with intraabdominal inflammatory changes. Suspicion is maintained for possible perforation of the mid sigmoid related to diverticular changes. Stomach and duodenum have normal appearance. ASSESSMENT: The patient has free intraperitoneal air and noted to have elevated lactic acid level and clinical dehydration. The problem has been present likely for several days, most likely this represents perforated diverticulitis. I reviewed with the patient a standard approach to such problems to include exploration of the abdomen with sigmoid resection and end colostomy (Jose Miguel's procedure). Modification of this standard is often effective so as to avoid immediate colostomy. This would include laparoscopic evaluation, lavage and drain placement, depending on his Hinchey classification. If advanced perforation is noted with gross fecal contamination or extensive intraperitoneal loculations not amenable to laparoscopic washout and drainage, resection of the offending sigmoid with primary anastomosis and diverting ileostomy is also an alternative. At this point, he is improved as regards to his lactic acid level with fluid resuscitation. A separate and distinct issue is his hypospadias; he has not yet voided. A pediatric Chand catheter might be placed. My examination of the genitalia shows his urethral opening on the ventral aspect of the penis with a relatively small opening. If this was not possible, a suprapubic cystostomy may be required. We discussed that as well. Monitoring of his urine output and certainly avoidance of obstructive outlet, renal failure would be obviously quite important. He understands these factors as well. We will proceed to operation as soon as possible this morning. All his questions have been answered. Electronically Signed By: EULOGIO LARES MD 10/22/192199 PATIENT NAME: HEATHER COREAS HISTORY AND PHYSICAL DATE OF : 58 REPORT #: [id number] PHYSICIAN: EULOGIO LARES MD PCP: NO PRIMARY CARE PHYSICIAN REPORT IS CONFIDENTIAL AND NOT TO BE RELEASED WITHOUT AUTHORIZATION [facility] [address] [place] [address] Signed MD RAYNA Astudillo/MODL /[id number] cc: MD Santino Hughes MD Kelly Dean Pridgen, MD Copies: SAYRA ALVAREZ MD,ELLIE HAWTHORNE MD, MD ~ Electronically Signed By: EULOGIO LARES MD 10/22/19 2200 PATIENT NAME: HEATHER COREAS HISTORY AND PHYSICAL DATE OF : 58 REPORT #: [id number] PHYSICIAN: EULOGIO LARES MD PCP: NO PRIMARY CARE PHYSICIAN REPORT IS CONFIDENTIAL AND NOT TO BE RELEASED WITHOUT AUTHORIZATION
--- NOTE | 2019-10-22 22:00 | OR ---
[facility] [address], [place] [address] Signed DATE OF OPERATION: 10/20/2019 SURGEON: Eulogio Lares MD PREOPERATIVE DIAGNOSIS: Perforated viscus with severe sepsis. POSTOPERATIVE DIAGNOSIS: Perforated sigmoid diverticulitis with multiple intraabdominal abscesses (interloop abscesses and right subphrenic abscesses. PROCEDURES: 1. Laparoscopy with attempted peritoneal lavage with conversion to open laparotomy. 2. Drainage of multiple intraabdominal interloop abscesses and drainage of right subphrenic abscess. 3. Jose Miguel's procedure (resection of the sigmoid and proximal rectum), left colostomy. 4. Mobilization of splenic flexure. 5. Placement of 24-Emirati BRAD gastrostomy tube. ANESTHESIA: General endotracheal (Thomas Gastelum, followed by Eulogio Gaming CRNA. INDICATIONS: This 59-year-old white man is a patient of Dr. Caballero and presented to the emergency room in the head of maintenance hours with generalized abdominal pain. A plain chest x-ray showed a fair amount of free intraperitoneal air. A CT scan was performed, which showed a high probability of perforated diverticulitis and a considerable amount of intraabdominal air. His lactic acid level was noted to be 6.9, white count 13,000. Aggressive fluid resuscitation was undertaken and initiation of broad-spectrum antibiotic meropenem. His lactic acid was checked once again and was found to be 3.2, was anuric. Notably, he has a significant hypospadias. A D-dimer was obtained, which was greater than 5000 and concern was maintained for possible pulmonary embolism. On that basis, an additional CT scan was performed to include the pulmonary angiogram as well as views of the abdomen and pelvis. This showed no evidence of pulmonary embolism. He does not clinically have evide nce of deep venous thrombosis of the lower extremities. He was resuscitated to the extent possible and taken emergently to the operation for further management. Electronically Signed By: EULOGIO LARES MD 10/22/19 2200 PATIENT NAME: HEATHER COREAS OPERATIVE REPORT DATE OF : 58 REPORT #: [id number] PHYSICIAN: EULOGIO LARES MD PCP: NO PRIMARY CARE PHYSICIAN REPORT IS CONFIDENTIAL AND NOT TO BE RELEASED WITHOUT AUTHORIZATION [facility] [address], [place] [address] Signed I discussed with the patient prior to operation, the risks of bleeding, infection, need for open procedure, though a laparoscopic lavage with drain placement would be our intended operation generally. Also, discussed the possible need for colon resection and diverting colostomy or if possible resection with diverting ileostomy. He understands the uncertainty of operation that would be most suited to him and wishes to proceed. FINDINGS: The patient was relatively hypotensive from beginning to end of operation, required pressor support. He did have over 100 mL of urine produced during the course of operation. Chand catheter was placed by the nurse through the mid portion of the ventral surface of the penis with a pediatric catheter. Findings on laparoscopy showed considerable amount of intraabdominal fluid and abscess and multiple areas of abscesses between bowel loops and the abdominal viscera. Despite efforts at breakdown of loculations laparoscopically, it was not feasible --the disease burden was too extensive. On that basis conversion laparotomy was undertaken. Found on open laparotomy were multiple interloop abscesses. Ernesto purulence was noted, collected between the bowel loops. A thin fibrinous peel was noted over the abdominal viscera entirely. There was a subhepatic abscess as well, which required separate drainage. The offending perforated viscus was indeed the sigmoid colon. A discrete hole was found in the colon after resection of the sigmoid and proximal rectum. The rectal stump was marked on each corner of the staple line with Prolene suture and secured anteriorly to the peritoneum for future reference for takedown of colostomy in the future. A primary anastomosis was quite unlikely in this situation and end-colostomy was required. The bowel was freed from ligament of Treitz to the terminal ileum completely, was markedly edematous and of course he had the fibrinous peel over many portions of it, but it was replaced in the abdomen in anatomic position. I suspect he will have a prolonged ileus and on that basis a decompressive gastrostomy was placed. There was surgical absence of the gallbladder. There was no evidence of malignancy in any way. The terminal ileum was well identified. A drain was placed in the deep pelvis as it was pelvic abscess fluid initially as well and a drain placed over the dome of the liver on the right side. Electronically Signed By: EULOGIO LARES MD 10/22/19 3982 PATIENT NAME: HEATHER COREAS OPERATIVE REPORT DATE OF : 58 REPORT #: [id number] PHYSICIAN: EULOGIO LARES MD PCP: NO PRIMARY CARE PHYSICIAN REPORT IS CONFIDENTIAL AND NOT TO BE RELEASED WITHOUT AUTHORIZATION [facility] [address] [place] [id number] Signed DESCRIPTION OF PROCEDURE: The patient was brought to the operating room after fluid resuscitation, IV antibiotic administration, given a general endotracheal anesthetic. Chand catheter was placed by the nurse in the ventral aspect of the penis in the midportion due to his significant hypospadias. Only a few mL of yellow urine were initially noted. The abdomen was clipped and prepared with a chlorhexidine solution and draped sterilely. He had a previous supraumbilical transverse incision from prior laparoscopic cholecystectomy. An infraumbilical incision was made and using an open Butch cannula technique, pneumoperitoneum was achieved to a level of 14 mmHg of carbon dioxide gas. Upon entry into the abdomen, egress of purulent material was noted and Gram stain and cultures were obtained. Introduction of the laparoscope into the abdomen showed bile-stained purulence throughout the abdomen including the upper aspect over the liver and throughout. A 12 mm epigastric port was placed. Camera replaced to that site and using the suction equipment operat0r device, multiple loops of bowel with fibrinous peel were manipulated. Examination the left side showed very dense interloop adhesions and typical peritoneal lavage and placement of drain for this situation would be quite unlikely. On that basis, further efforts at peritoneal lavage were abandoned and conversion to open operation made. The incision was then made at the umbilicus inferiorally and later extended cephalad as necessary. He has a thick abdominal wall pannus and significant obesity. The omentum was densely adhered over the upper abdominal viscera. This process had been present for quite some time, it is quite obvious. Interloop adhesions were broken down with blunt dissection, revealing multiple foci of interloop abscess fluid. This was purulent and moderately thick and impressive in its extent. The small bowel was freed with blunt dissection from the ligament of Treitz to the terminal ileum aspirating purulent material throughout. Photographs were taken. The passage of the examining hand over the dome of the liver on the right side showed some omental adhesions in the region of the subhepatic, gallbladder fossa from prior cholecystectomy, but breakdown in the upper abdomen showed subphrenic abscess as well. All these areas were copiously irrigated free. Fibrinous peel as able was removed, but other areas were left in situ, so as to avoid the serosal disruption and fistula formation. Copious irrigation was undertaken by this point, and all abscesses appeared to be completely drained. The sigmoid colon appeared quite markedly inflamed and bile-stained and was considered likely source of perforation. The Bookwalter retractor was obtained. Small bowel was retracted to the right side of the abdomen, allowing for better dissection in Electronically Signed By: EULOGIO LARES MD 10/22/19 2200 PATIENT NAME: HEATHER COREAS OPERATIVE REPORT DATE OF : 58 REPORT #: [id number] PHYSICIAN: EULOGIO LARES MD PCP: NO PRIMARY CARE PHYSICIAN REPORT IS CONFIDENTIAL AND NOT TO BE RELEASED WITHOUT AUTHORIZATION [facility] [address] [place] [address], [place] [address] Signed the area. Using blunt and electrocautery dissection, the sigmoid colon was freed from the pelvic sidewall. The white line of Toldt was impressively fused with a lateral sidewall, but with careful blunt dissection, it could be freed and purulent material was noted there. The sigmoid was plastered anteriorly to the bladder and blunt dissection between those planes undertaken, revealing purulent material in the pelvis. This was suctioned free more fully as well. A very rubbery thickened sigmoid and descending colon were meticulously freed from the retroperitoneum, mindful of position of the ureter. Electrocautery was used to secure the mesosigmoid ultimately. Interrupted 0-silk sutures were used to secure the vascular pedicles as necessary as typical application of hemostats, and so forth were quite unlikely. Ultimately, the left colon was freed more fully as was the sigmoid, so as to avoid excessive resection of the rectum area demarcated above the pelvic peritoneum was made. The sigmoid mesentery was freed up through the descending colon. A ONEYDA stapling device was used to transect the distal descending colon above the offending perforated segment. Further mobility inferiorly was undertaken and thickened perirectal fat incised with electrocautery and secured with clips as necessary until the serosa of the rectum was encountered. The rectum was divided with a ONEYDA 75 mm stapling device as well. The specimen was passed from the table. Photographs were taken. An end-colostomy was deemed most advisable under the circumstances. Due to his thick abdominal wall pannus, further mobility of the left colon was needed. This included ultimately mobilization of the splenic flexure, which was less involved with fibrinous peel. Ultimately, redundant colon was able to be well mobilized. An area designated as appropriate for colostomy in the left abdomen was designated. The skin was tented and incised with a 20 blade and dissection carried through the subcutaneous tissue over the left rectus muscle. Fascia was incised in a cruciate configuration. Longitudinal rectus fibers were , and ultimately a hemostat passed into the peritoneal cavity. This site was opened with blunt dissection using fingers. A Coy clamp was passed to the abdominal wall to deliver the left colon. Further mobility was required and some excision of very congested and fatty taenia epiploica to allow for passage of the left colon through the thick abdominal wall pannus. When an adequate segment had been passed through and secured externally with a Coy clamp, attention was turned towards placement of drains. Through two separate stab incisions, a left-sided 7 mm Steve drain was placed in the left retroperitoneal area extending down into the pelvis. Through a right upper abdominal incision, a 7 mm Steve was passed over the dome of the liver in the subphrenic space to drain that previous abscess space. Irrigation was undertaken copiously in the abdomen and the small bowel was returned to a Electronically Signed By: EULOGIO LARES MD 10/22/19 3863 PATIENT NAME: HEATHER COREAS OPERATIVE REPORT DATE OF : 58 REPORT #: [id number] PHYSICIAN: EULOGIO LARES MD PCP: NO PRIMARY CARE PHYSICIAN REPORT IS CONFIDENTIAL AND NOT TO BE RELEASED WITHOUT AUTHORIZATION [facility] [address], [place] [address] Signed natural anatomic configuration. The rectal stump was secured to the anterior pelvic peritoneum with interrupted 0-Prolene suture for future reference and these sutures were cut long, so that it could be easily found in the future. There was no sign of bleeding or other problem. Mindful of the edematous nature of the bowel and the high probability for prolonged ileus, a decompressive gastrostomy was deemed advisable. Using a Ela technique in the midportion of the stomach, a 24-Emirati BRAD gastrostomy tube was passed to the abdominal wall through a separate stab incision, placed into the peritoneal cavity and the pursestring suture secured and balloon inflated. The anterior wall of the stomach was secured to the abdominal wall with interrupted 3-0 silk sutures as well. The flange was secured into position and secured with a 2-0 nylon loop tie. The omentum was then replaced over the abdominal contents and plans made for closure. The midline fascia was reapproximated with running bidirectional #1 PDS suture. Additional interrupted PDS sutures were used in the lower aspect to secure the fascia just above the symphysis pubis. The subcutaneous tissue was copiously irrigated and skin loosely closed with stapling device. A silver sponge dressing was applied to that wound. The drains were secured to the skin with nylon suture and attached to bulb suction. The gastrostomy tube was later attached to a draining gastrostomy tube. Nasogastric tube placed by the clerk general office, which had previously been secured in place and was easily positioned within the stomach itself. Plans were then made for maturing of the colostomy. The staple line of the left colon was identified and incised and sequential application of 3-0 Vicryl suture to the dermal layer undertaken providing for maturation of the ostomy. At completion, the index finger was used to ascertain the passage of the end colostomy, which was slightly tangential to its entry from the outside, but appeared well patent. An ostomy wafer was cut to appropriate size and isolating drape from the midline incision removed. The patient was ultimately extubated and taken to recovery room. The operation was prolonged, complicated, and difficult. Blood loss was 100 mL. Sponge, needle, and counts reported as correct x3. Eulogio Lares MD Electronically Signed By: EULOGIO LARES MD 10/22/190 PATIENT NAME: HEATHER COREAS OPERATIVE REPORT DATE OF : 58 REPORT #: [id number] PHYSICIAN: EULOGIO LARES MD PCP: NO PRIMARY CARE PHYSICIAN REPORT IS CONFIDENTIAL AND NOT TO BE RELEASED WITHOUT AUTHORIZATION [facility] [address] [place] [id number] Signed RAYNA/PADDY /[id number] cc: MD Ellie Hughes MD Copies: SAYRA CABALLERO MD,ELLIE MORRIS MD ~ Electronically Signed By: EULOGIO LARES MD 10/22/19 2200 PATIENT NAME: HEATHER COREAS OPERATIVE REPORT DATE OF : 58 REPORT #: [id number] PHYSICIAN: EULOGIO LARES MD PCP: NO PRIMARY CARE PHYSICIAN REPORT IS CONFIDENTIAL AND NOT TO BE RELEASED WITHOUT AUTHORIZATION
--- NOTE | 2019-10-22 22:30 | NUR ---
NO FURTHER C/O PAIN, LESS ANXIOUS. SL R ARM PATENT, ivf INFUSING l ARM. ON ROOM AIR, ABD LARGE SOFT, JEOVANY. L MID ABD OSTOMY IN PLACE, SCANT AMOUNT OF DRAINAGE. UPPER MID ABD G TUBE IN PLACE TO GRAVITY, DRAINING GREEN COLORED DRAINAGE. 2 LEE BOTH SIDES OF ABD. LEGS ELEVATED, COMPLIANT WITH ASSESSMENT.
--- NOTE | 2019-10-23 00:05 | NUR ---
RESTING, EYES CLOSED, RESP EVEN UNLABORED, HOB ELEVATED TO HIS COMFORT, IVF INFUSING.
--- NOTE | 2019-10-23 01:54 | NUR ---
c/o abd pain, medicated with Toradol 30mg IV. anxious, reassured, aknowleges his concersn about body issues due to abd tubes and ostomy. calmer
--- NOTE | 2019-10-23 06:02 | NUR ---
medicated per abd pain with Morphine 6mg IV.
--- NOTE | 2019-10-23 07:23 | NUR ---
RECIEVED BEDSIDE REPORT FROM YAIR BESS. PT IS AWAKE AND ALERT IN BED. STATES THAT LAB HAD ISSUES GETTING BLOOD, BUT DID GET A SAMPLE. PT IS ANXIOUS RE: BODY CHANGES. SCANT OUTPUT FROM OSTOMY. G-TUBE IS PATENT. TOLERATED CLEARS WELL. VOIDING WELL.
--- NOTE | 2019-10-23 09:21 | NUR ---
PT IS ANXIOUS, RESTING IN BED. DENIED A BEDBATH TODAY, STATED HE HAD ONE YESTERDAY. IS AGREEABLE TO A WALK AFTER TYLENOL.
--- NOTE | 2019-10-23 18:44 | NUR ---
PT DECLINED A BEDBATH THIS SHIFT STATING THAT HE HAD ONE YESTERDAY. HAS BEEN UP WALKING AROUND HIS ROOM, REMINDED MULTIPLE TIMES TO CALL FOR ASSISTANCE. PT HAS BEEN TURNING HIS IV PUMP OFF WHEN IT BEEPS RATHER THAN CALLING FOR ASSISTANCE. REMINDED PT TO CALL FOR ASSISTANCE.
--- NOTE | 2019-10-23 20:33 | NUR ---
Awake, watching tv, sitting up in bed. On room air, coop with assessment, lungs clear, abd tender, soft, avni, L and ostomy with scant liquid drainage, midline abd GT patent, draining gree-brown colored drainage. 2 LEE with ss drainage. voiding QS dark yellow-orange colored urine, no c/o pain. IVf infusing. fresh water at bedside, tolerating clear liquids well, no n/v.
--- NOTE | 2019-10-23 22:09 | NUR ---
medicated with morphine 6mg IV, c/o 7-01/22 abd pain, burping, denies passing gas, abd tender. coop
--- NOTE | 2019-10-24 01:35 | NUR ---
AWAKENS EASILY, NO C/O PAIN. IVF INFUSING, NO ADVERSE REACTION TO ABX.
--- NOTE | 2019-10-24 04:00 | NUR ---
Awakes easily, denies /co pain. ivf infusing w/o problems.
--- NOTE | 2019-10-24 04:58 | NUR ---
Pt has slept 2-3 hrs, anxious, reassured easily. On room air, Abd tender, soft, avni, mid upper abd GTube, R and Left abd LEE and L colostomy patent, pt denies passing gas. IVF infusing w/o problems, no c/o adverser eaction to IV abx, was medicated x1 per abd pain with good pain relief. Tolerating clear liquids well, no n/v, uses call light appropriately
--- NOTE | 2019-10-24 06:11 | NUR ---
Coop, still anxious but calmer, coop with assessment, IVF infusing w/o problems, no c/o adverse reaction to IV abx. Colostomy, no drainage, not passing gas. GT and LEE patent. tolerating liquids well
--- NOTE | 2019-10-24 07:00 | NUR ---
REPORT RECEIVED. PT IN SOME PAIN, REQUESTNG PAIN MEDS. DENEIS NAUSEA.LR AT 125 AND MERREM INFUSING. RIGHT LEE WITH SMALL AMOUNT OF SEROUS DRAINAGE. LEFT WITH SMALL AMOUNT OF SEROSANG. G-TUBE TO GRAVITY, DRAINING WELL. OSTOMY WITH NO AIR OR STOOL IN BAG. CALL LIGHT IN REACH.
--- NOTE | 2019-10-24 08:24 | NUR ---
REPORTING 8/10 PAIN IN LEFT ABDOMEN RADIATING TO THE RIGHT. 6MG MORPHINE ADMINSTERED WITH 4MG ZOFRAN FROM SIDE EFFECT OF NASUEA FOR PAIN MED.
--- NOTE | 2019-10-24 10:22 | NUR ---
PAIN DOWN TO 5/10. DRESSING TO LEFT LEE CHANGED. BOWEL TONES ACTIVE. NO MUNIR OR BM IN OSTOMY. DRAINAGE FROM BOTH JPS SEROUS. 2+ EDEMA TO BILAT LE. 1+ TO BIALT HIPS. DRESSING TO MIDLINE CLEAN AND ITACT. PT SEEMS DISCOURAGED, DISCUSSED BENEFITS OF AMBUATING AND GETTING OOB. PT AGREEABLE TO WALK HALLS. BE BATH COMPLETED. TYLENOL ADMISTERED. ABX INFUSING.
--- NOTE | 2019-10-24 11:08 | NUR ---
PT AMBULATED 2 LAPS IN HALLS. NO RESTING IN BED. PAIN 11/22. CALL LIGHT IN REACH.
--- NOTE | 2019-10-24 12:41 | NUR ---
PT SITTING UP AT SIDE OF BED FOR LUNCH. 450 OUT OF G-TUBE BAG. 10ML SEROSANG FROM LEFT LEE AND 20 OF SEROUS FROM RIGHT LEE. PAIN AT 6/10. DENEIS NAUSEA.
--- NOTE | 2019-10-24 14:51 | NUR ---
DISCUSSED SHOWER WITH PT. PT FEELS HE WORKED HARD TODAY AND A SHOWER WOULD BE TOO MUCH. EDUCATED ON IMPORTANCE OF MOVING AROUND AND HEALING. PT AGREEABLE TO WALK TWO MORE TIMES BEFORE BED. REFUSED SHOWER AT THIS TIME.
--- NOTE | 2019-10-24 15:00 | NUR ---
PATIENT IN BED, PATIENT WALKED TO THE NURSES STATION AND BACK TWICE PATIENT NEEDED NO OTHER ASSISTANCE AT THIS TIME
--- NOTE | 2019-10-24 16:09 | NUR ---
PAIN 6/10. IV TYLENOL GIVEN. PLAN FOR WALK BEFORE DINNER.
--- NOTE | 2019-10-24 16:31 | NUR ---
PT ABLE TO AMBUALTE 1 LAP. BACK T VANIA. CALL LIGHT IN REACH.
--- NOTE | 2019-10-24 18:13 | NUR ---
PT HAD GOOD DAY. AMBULATED X2 THIS SHIFT. PLANS FOR SHOWER TOMORROW. MORPHINE AND TYLENOL FOR PAIN WORKING WELL. PREMEDICATE WITH ZOFRAN. LEFT LEE WITH 10 ML OUT AND RIGHT WITH 20ML. SEROUS FLUID. VOIDING WELL. NO FLATUS OR BM YET. G-TUBE WITH 1050 OUT. DRESSINGS C/D/I.
--- NOTE | 2019-10-24 19:30 | NUR ---
SHIFT REPORT RECEIVED FROM YAIR SALAZAR, pt RESTING IN BED SAFELY WITH CALL LIGHT IN REACH, pt STATES, "MY PAIN IS AT A 4.5 BUT THIS IS MY AVERAGE". MIDLINE DRESSING CDI, SCANT SEROUS DRAINAGE IN BOTH JPs, G-TUBE DRAINING TO GRAVITY WNL, SCANT BROWN LIQUID IN OSTOMY.
--- NOTE | 2019-10-24 21:45 | NUR ---
pt ASSESSMENT, VS, AND I+O's COMPLETE. pt RATES PAIN 5/10, SCHEDULED PM MEDS AND PRN PAIN MEDS ADMINISTERED PER REQUEST/ORDER. MIDLINE DRESSING CDI, BOTH LEE's EMPTIED SMALL AMOUNT OF SEROUS DRAINAGE IN THE R AND SMALL AMOUNT SEROSANGUINEOUS DRAINANGE IN THE L, G-TUBE EMPTIED LARGE AMOUNT OF GREEN DRAINAGE, OSTOMY NOT EMPTIED BUT SCANT AMOUNT OF BROWN DRAINAGE OBSEREVED. pt REPOSITIONED HIMSELF HIGHER IN BED, RESTING SAFELY WITH CALL LIGHT IN REACH. GIVEN NEW ICE WATER AND CUP OF ICE, DENIES FURTHER NEEDS AT THIS TIME.
--- NOTE | 2019-10-24 22:30 | NUR ---
pt RESTING IN BED SAFELY WITH CALL LIGHT IN REACH, IV ABX INFUSING WNL PER ORDER, pt DENIES ANY NEEDS AT THIS TIME.
--- NOTE | 2019-10-25 00:52 | NUR ---
PT CALLED IV PUMP ALARMING. DENIED OTHER NEEDS, STATED HE HAD BEEN SLEEPING "PRETTY GOOD", THEN THE MACHINE WOKE HIM UP.
--- NOTE | 2019-10-25 01:40 | NUR ---
IV ABX COMPLETE, pt RESTING IN BED SAFELY WITH CALL LIGHT IN REACH, DENIES ANY NEEDS AT THIS TIME.
--- NOTE | 2019-10-25 04:09 | NUR ---
pt RESTING IN BED SAFELY WITH EYES CLOSED, RR EVEN AND UNLABORED, CALL LIGHT IN REACH.
--- NOTE | 2019-10-25 05:04 | NUR ---
pt RESTED THROUGHOUT THE NIGHT, PRN PAIN MEDS ADMINISTERED PER REQUEST/ORDER, IV ABX ADMINISTERED PER ORDER, IVF INFUSING WNL PER ORDER, MIDLINE DRESSING CDI,SCANT SEROUS DRAINAGE FROM L LEE, SCANT SEROSANGUINEOUS DRAINAGE FROM R LEE, G-TUBE DRAINING TO GRAVITY WITH SMALL AMOUNT GREEN DRAINAGE, SCANT AMOUTN BROWN DRAINAGE FROM OSTOMY. ACTIVE BOWEL TONES THROUGHOUT, MILD DISTENTION AND TENDERNESS OF ABD.
--- NOTE | 2019-10-25 06:01 | NUR ---
CALL LIGHT ANSWERED, pt GIVEN CUP OF ICE. 2ND pt ASSESSMENT, VS, I+O's COMPLETE. PRN PAIN MED AND SCHEDULED IV ABX ADMINISTERED PER REQUEST/ORDER. MIDLINE DRESSING CDI, SCANT DRAINAGE IN BOTH JPs, SCANT BROWN DRAINAGE IN OSTOMY, G-TUBE DRAINING TO GRAVITY WITH SMALL AMOUNT OF GREEN DRAINAGE EMPTIED. pt RESTING IN BED SAFELY WITH CALL LIGHT IN REACH, DENIES FURTHER NEEDS AT THIS TIME.
--- NOTE | 2019-10-25 07:34 | NUR ---
Pt sleeping at this time, resp even and non labored. Per report pt requesting to sleep at this time. Call light within reach.
--- NOTE | 2019-10-25 10:24 | NUR ---
PATIENT AMBULATED IN HALLWAY, IND. PATIENT NOW IN BED WATCHING TV. CALL LIGHT IN REACH. NO FURTHER NEEDS AT THIS TIME.
--- NOTE | 2019-10-25 12:10 | NUR ---
Pt sitting up in bed watching TV at this time. Emptied drain sites. All drains intact, patent and draining appropriately. Pt reports he feels better after his recent walk. Pt denies needs. Personal supplies and call light within reach. No needs at this time.
--- NOTE | 2019-10-25 14:16 | NUR ---
PT IS SITTING UP IN BED, WATCHING TV. PT IS ALERT, ORIENTED AND SEEMED TO ENJOY A VISIT. PT FEELS INFORMED OF POC, FEELS CONFIDENT IN CARE HE IS RECEIVING. PT BEGAN TO SHARE THAT HIS SON HAS MOVED DOWN FROM [facility] TO LIVE AND CARE FOR HIM. PT ADMITTED THAT HE HASN'T SPENT MUCH TIME WITH HIS SON ENCOURAGED HIM TO USE THIS TIME TO DEVELOP A NEW RELATIONSHIP AND TO KEEP IN MIND HIS SON IS NO LONGER 14-THE LAST TIME THEY LIVED TOGETHER. PT DESIRED TO KNOW WHAT SIGNS WOULD SIGNAL ADVANCING HIS DIET. YAIR LIVINGSTON CAME IN JUST THEN, SHE ANSWERED PTS' QUESTION. PT REQUESTED PRAYER, GAVE HIM A G.POST
--- NOTE | 2019-10-25 16:43 | NUR ---
Pt sitting up in bed watching TV. Pt's resp even and non labored. drains assessed, all are intact and patent. Pt reports abdominal pain is tolerable at this time, declined pain medication. No needs at this time. Pt reports he will be up shortly for another walk. Call light within reach.
--- NOTE | 2019-10-25 17:31 | NUR ---
MARGE from Dr. Quintana to clamp g tube, and if tolerating clears well advance diet to regular. G tube clamped at this time.
--- NOTE | 2019-10-25 18:12 | NUR ---
Ostomy appliance changed as it was leaking. Stoma beefy red, Dr. Quintana examined as well during ostomy change. Pt tolerated well.
--- NOTE | 2019-10-25 18:34 | NUR ---
PATIENT IN BED RESTING. CALL LIGHT IN REACH. NO FURTHER NEEDS AT THIS TIME.
--- NOTE | 2019-10-25 20:57 | NUR ---
in bed, continous to have depressed, flat affect, encouraged to do hands on ostomy care, " not now, but yes to next time, i have to go home with it". draining small amount green semi liquid bm, passing gas, GT clamped, 2 LEE w serous drainage, patent. mid abd dressing intact. avni. IVf infusing, cooperative. no c/o pain at this time, toelrating liquids well
--- NOTE | 2019-10-25 22:17 | NUR ---
c/o abd pain, medicated with 6mg morphine
--- NOTE | 2019-10-26 01:30 | NUR ---
HANDOFF REPORT RECEIVED FROM RN MARIA ALEJANDRA, ASSUMED CARE OF pt.
--- NOTE | 2019-10-26 02:27 | NUR ---
CHECKED ON pt. RESTING IN BED WITH EYES CLOSED. BREATHING EQUAL AND UNLABORED. LIGHTS OFF IN ROOM.
--- NOTE | 2019-10-26 05:40 | NUR ---
IV PUMP ALARMING, NEW BAG OF IVF HUNG, SCHEDULED IV ABX AND PRN PAIN MEDS ADMINISTERED PER REQUEST/ORDER. IV IN L HAND LEAKING, ROATED PER POLICY, NEW IV STARTED. 2ND pt ASSESSMENT, VS, I+O's COMPLETE. MIDLINE DRSNG CDI, G-TUBE CLAMPED, BOTH LEE's EMPTIED, AND COLOSTOMY EMPTIED. pt RESTING IN BED SAFELY WITH CALL LIGHT IN REACH, DENIES FURTHER NEEDS AT THIS TIME.
--- NOTE | 2019-10-26 06:00 | NUR ---
pt RESTED WELL THROUGHOUT THE NIGHT, SCHEDULED IV ABX AND PRN PAIN MEDS ADMINISTERED PER REQUEST/ORDER, IVF INFUSING WNL PER ORDER. IV IN L HAND DC'd DUE TO LEAKING, ROTATED PER POLICY AND NEW IV STARTED IN R WRIST. pt WAS EMOTIONAL ABOUT CURRENT ILLNESS AND BODY IMAGE. VOIDING QUANTITY SUFFICIENT, MINIMAL DRAINAGE IN LEE DRAINS, G-TUBE CLAMPED PER ORDER, MINIMAL DRAINAGE FROM COLOSTOMY, MIDLINE DRSNG CDI, pt TOLERATING ORAL FLUIDS WELL, NO C/O NAUSEA. pt IS IND IN RM, USES CALL LIGHT APPROPRIATELY.
--- NOTE | 2019-10-26 07:20 | NUR ---
REPORT RECIEVED FROM NIGHT STAFF. PATIENT DOES NOT WOKE UP FOR REPORT. RESTING QUIETLY IN BED AT THIS TIME. CALL LIGHT IN REACH AND BED RAILS UP X2.
--- NOTE | 2019-10-26 07:35 | NUR ---
PATIENT SLEEPING. CALL LIGHT WITHIN REACH. NO OTHER NEEDS AT THIS TIME
--- NOTE | 2019-10-26 09:13 | NUR ---
SITTING WITH HEAD OF BED ELEVATED. ASSESSMENT COMPLETED. STATES PAIN IS 5/10 AT THIS TIME, BUT DOES NOT WANT TO TAKE ANYTHING. LEE DRAINS BOTH DRAINING, MINIMAL DRAINAGE NOTED AT THIS TIME. DENIES NEEDS. CALL LIGHT IN REACH, BED RAILS UP X2. WOULD LIKE TO KEEP VIOLET AREA AND BUTTOCKS COVERED, DOES NOT LET STAFF ASSESS THESE AREAS.
--- NOTE | 2019-10-26 11:48 | NUR ---
SITTING UP IN BED. STATES HE DOES NOT WANT LUNCH. STATES HE NEVER EATS THREE MEALS A DAY AT HOME. ENCOURAGED TO EAT PROTEIN TO ASSIST WITH WOUND HEALING. STATES HE WILL TRY A MILKSHAKE AT THIS TIME. ICE CHIPS PROVIDED PER REQUEST. LEE DRAINS EMPTIED. DRESSINGS ASSESSED, NO CHANGES. DENIES OTHER NEEDS. CONTINENT OF URINE. BED RAILS UP X2. CALL LIGHT IN REACH.
--- NOTE | 2019-10-26 12:38 | NUR ---
SITTING ON EDGE OF BED AT THIS TIME. STATES PAIN IS 6/10 AND REQUESTS SOMETHING FOR PAIN. STATES PAIN STARTED WITH REMOVAL OF LEE DRAINS BY DR. MCGOVERN. DENIES OTHER NEEDS AT THIS TIME. INFORMED THIS NURSE WILL BRING ANALGESICS. CALL LIGHT IN REACH. BED RAILS UP X2.
--- NOTE | 2019-10-26 13:11 | NUR ---
OSTOMY BAG EMPTIED PER REQUEST. PRN ANALGESICS PROVIDED. PATIENT PALE AND BREATHING HEAVILY IN PAIN. REPOSITIONS SELF IN BED. INFORMED OF NEED TO FLUXH G-TUBE AND SHOWER AFTER PAIN MEDICATION TAKES EFFECT. VERBALIZES UNDERSTANDING. DENIES OTHER NEEDS.
--- NOTE | 2019-10-26 13:57 | NUR ---
PATIENT RESTING IN BED. VITAL SIGNS WERE OBTAINED BY STUDENT RN. VITAL SIGNS AND I&O DONE. CALL LIGHT WITHIN REACH. NO OTHER NEEDS AT THIS TIME
--- NOTE | 2019-10-26 14:56 | NUR ---
G-tube flushed with 50 ml tap water per order. Patient instructed on what nurse is doing, why and educating on procedure so he may flush g-tube tomorrow with nurse at bedside. Verbalizes understanding. Denies questions at this time. States pain is 4/10 now. Assessment completed. Dressing and LEE drains removed by Dr. Hendricks today. Incision sites to abdomen well approximated, pink skin, no drainage from site, sol intact. Denies other needs at this time. Call light in reach. Bedrails up X2.
--- NOTE | 2019-10-26 15:38 | NUR ---
PATIENT RESTING IN BED. IV WRAPPED. PATIENT GOES TO THE BATHROOM TO TAKE A SHOWER. PATIENT TAKES A SHOWER. LINENS CHANGED. TWO PERSON ASSISTING. PATIENT BACKS TO BED. CALL LIGHT WITHIN REACH. NO OTHER NEEDS AT THIS TIME
--- NOTE | 2019-10-26 16:02 | NUR ---
In and spoke with Ty. He plans on dc to home on Thursday. Plans on showering today and Rn will assist him with bag change. Discussed supplies and companies who will deliver supplies on a routine basis. He agrees to [employer]. Informed I will send his info when Dr. Quintana writes a script. Reviewed with nurses, pt is using a [place] [employer] wafer and bag kit 2 08/16. Skin prep under wafer. Noted left for DR. Quintana requesting rx and I will send with notes to [place] tomorrow. Bag kit # [id number].
--- NOTE | 2019-10-26 17:21 | NUR ---
PATIENT SITTING UP IN BED. VITAL SIGNS AND I&O DONE. CALL LIGHT WITHIN REACH. NO OTHER NEEDS AT THIS TIME
--- NOTE | 2019-10-26 17:53 | NUR ---
AMBULATES IN HALLWAY TODAY. SHOWERS TODAY. LEE DRAINS REMOVED BY DR. LARES. PAIN CONTROLLED WITH PO TYLENOL AND MOTRIN. POOR FOOD INTAKE. DRINKING LIQUIDS AND EATING ICE CHIPS. ENCOURAGED MULTIPLE TIMES TO EAT SOLIDS TODAY. TAUGHT ABOUT G-TUBE CARE, COLOSTOMY AND INCISION CARE. DENIES ANY QUESTIONS.
--- NOTE | 2019-10-26 18:08 | NUR ---
YELLING OUT. STATES SHE IS IN A LOT OF PAIN IN HER ABDOMEN. REPOSITIONED IN BED. CATHETER FLOWING WELL WITH NO MOISTURE UNDER PATIENT.
--- NOTE | 2019-10-26 19:26 | NUR ---
SHIFT REPORT RECIEVED FROM JV MAZARIEGOS. PT RESTING IN BED. NO NEEDS AT THIS TIME. CALL LIGHT IN REACH.
--- NOTE | 2019-10-26 21:18 | NUR ---
PATIENT'S COLOSTOMY BAG CAME LOOSE AND A NEW ONE HAD TO BE PLACED, PATIENT WAS INSTRUCTED IN THIS PROCESS AND HELP, PATIENT FEELING BETTER ABOUT WORKING WITH THE OSTOMY NOW. CALL LIGHT IN REACH.
--- NOTE | 2019-10-26 23:12 | NUR ---
PATIENT UP CLEANING HIS OSTOMY BAG. IV FLUSHED WITHOUT DIFFICULTY AND PEG TUBE FLUSHE WITH 25MLS TAP WATER.
--- NOTE | 2019-10-27 00:24 | NUR ---
PATIENT RESTING QUIETLY, WITH EVEN AND REGULAR RESPIRATIONS, IN SEMI-FOWLERS POSITION. CALL LIGHT IN REACH AND EYES CLOSED.
--- NOTE | 2019-10-27 02:40 | NUR ---
PATIENT CONTINUES TO REST QUIETLY, EYES UNDER FACE MASK, BREATHING REGULAR, IN SEMI-FOWLERS POSITION. CALL LIGHT IN REACH.
--- NOTE | 2019-10-27 04:29 | NUR ---
PATIENT HAD A LEAKING COLOSTOMY BAG AT THE BEGINING OF THE SHIFT AND STAFF HELP TEACH HIM HOW TO TAKE CARE OF THIS ISSUE AND GET IT CLEANED UP AND NEW ATTACHMENTS IN PLACE. PATIENT HAS BEEN EMPTING HIS OWN COLOSTOMY BAG AND FLUSHED HIS PEG TUBE. PATIENT HAS BEEN RESTING QUIETLY WITH REGULAR AND EVEN RESPIRATIONS MOST OF THE NIGHT AND HAS NOT REQUESTED ANY PRN MEDICATION. CALL LIGHT IN REACH AND PATIENT STILL RESTING.
--- NOTE | 2019-10-27 07:08 | NUR ---
REPORT FROM YAIR REYNA.
--- NOTE | 2019-10-27 07:46 | NUR ---
AMBULATING AROUND ROOM COMPLETING AM CARES. DENIES NEEDS AT THIS TIME. INFORMED THIS NURSE WILL BRING AM MEDICATIONS SHORTLY.
--- NOTE | 2019-10-27 08:30 | NUR ---
SITTING UP IN CHAIR. ASSESSMENT COMPLETED. STATES PAIN IS 4/10 AT THIS TIME AND REFUSES ANALGESIC. VERBALIZES ENTIRE PROCESS FOR CHANGING OSTOMY BAG AND WAFER. ALSO DISCUSSES PROCESS FOR FLUSHING G-TUBE. STATES HE IS MORE OPTIMISTIC TODAY KNOWING THESE WILL NOT BE IN PLACE FOREVER. STATES HE KNOWS IT IS GOING TO BE A LONG RECOVERY PROCESS, ESPECIALLY WITH LIKELY SURGERY IN A MONTH. DENIES OTHER NEEDS. AM MEDICATIONS GIVEN PRESCRIBED. TAKES WITHOUT DIFFICULTY. STATES HE IS GOING TO TRY TO EAT MORE TODAY. CALL LIGHT IN REACH. ENCOURAGED TO ELEVATE LEGS TODAY FOR EDEMA.
--- NOTE | 2019-10-27 08:38 | NUR ---
WHEN I WENT IN THIS MORING PATIENT WAS UP IN HIS BATHROOM. I CHANGED HIS BED LINENS. I ASKED HIM IF HE WOULD LIKE TO SIT UP IN HIS CHAIR FOR BREAKFAST AND HE SAID YES SO I PUT A BLANKET ON HIS CHAIR AND SET UP HIS TABLE FOR BREAKFAST.
--- NOTE | 2019-10-27 09:21 | NUR ---
PATIENT UP IN CHAIR EATING BREAKFAST. DOING WELL TODAY SO FAR. I HAVE A CONSULT FOR NUTRITION EDUCATION FOR NEW COLOSTOMY. HE HAS BEEN EATING SLOWER AND SMALLER PORTIONS FOR A COUPLE YEARS NOW. THIS HAS HELPED DECREASE HIS ACID REFLUX. HE IS THINKING ABOUT DOING A VEGETARIAN DIET. HE HAS ALREADY CUT HIS INTAKE OF RED MEAT WAY DOWN. I PROVIDED HIM A HANDOUT ON COLOSTOMY NUTRITION THERAPY. EXPLAINED FOR HIM TO EAT LOWER FIBER FOODS FOR A FEW MORE DAYS AND SHOWED HIM A LIST OF RECOMMENDED FOODS. ALSO SHOWED HIM LISTS OF FOODS THAT MAY CAUSE A BLOCKAGE IN THE COLOSTOMY, FOODS THAT MAY CAUSE GAS, FOODS THAT MAY COLOR THE STOOL, THAT MAY CAUSE DIARRHEA, AND FOODS THAT MAY THICKEN THE STOOL. PROVIDED HIM TIPS FOR EASING INTO EATING BERRIES OR OTHER FRUITS OR VEGETABLES THAT PROVIDE FIBER. HE APPRECIATED MY HELP. I TOLD HIM IF HE HAS ANY QUESTIONS AT HOME HE CAN CALL MY OFFICE - -# PROVIDED ON THE HANDOUT.
--- NOTE | 2019-10-27 11:07 | NUR ---
USES CALL LIGHT. STATES HIS COLOSTOMY IS LEAKING. UPON ENTERING ROOM. PATIENT STANDING IN BATHROOM, TEARFUL, STOOL FROM COLOSTOMY LEAKING FROM BOTTOM TO FLOOR AND DOWN PATIENT LEG. PATIENT LEGS WIPED OFF AND RETURNS TO BED. ABDOMEN CLEANSED. PATIENT PROVIDED WITH GLOVES TO CARE FOR OSTOMY WITH INSTRUCTION. PATIENT REMOVES OSTOMY. ASSIST PATIENT TO CLEANSE AREA AND REMOVE PREVIOUS ADHESIVE. PATIENT THEN APPLIES WAFER AND BAG WITH MINIMAL INSTRUCTION NEEDED. TEARFULNESS RESOLVES CARES, REDIRECTION AND REASSURANCE PROVIDED. AFTER CARES COMPLETED, REQUESTS TYLENOL FOR PAIN. MEDICATION PROVIDED. DENIES OTHER NEEDS. STATES HE WOULD LIKE TO REST FOR A LITTLE WHILE. LIGHTS SHUT OFF, CALL LIGHT IN REACH. BED RAILS UP X2.
--- NOTE | 2019-10-27 12:59 | NUR ---
YAIR CARIAS INFORMED ME THAT PT HAD A DIFFICULT AM TODAY. MET WITH PT, HE WAS SITTING UP IN BED FINISHING LUNCH. PT ADMITTED THAT TODAY HAS BEEN DIFFICULT ON HIM PHYSICALLY, EMOTIONALLY AND SPIRITUALLY. THE CHANGES TO HIS LIFE, "THE BLOW OUTS" HE CALLED THEM AND HIS EMBARRASEMENT MADE FOR A DIFFICULT DAY. DEBRIEFED PT, HAD PRAYER WITH HIM. HE SEEMED BETTER, THANKED ME FOR VISIT.
--- NOTE | 2019-10-27 13:23 | NUR ---
Spoke with Ty, he would like to use [facility] for his ostomy supplies. When Dr. Quintana completes a rx, will fax chart and orders to [facility].
--- NOTE | 2019-10-27 15:47 | NUR ---
LYING WITH HEAD OF BED ELEVATED. STATES HIS PAIN IS COMING BACK, BUT REFUSES TYLENOL OR MOTRIN AT THIS TIME. STATES HE WILL CALL IF PAIN GETS ABOVE 5/10, HE WILL CALL FOR MEDICATION. DENIES OTHER NEEDS AT THIS TIME. CALL LIGHT IN REACH. BED RAILS UP X2.
--- NOTE | 2019-10-27 16:25 | NUR ---
PATIENT IS LAYING IN BED WATCHING TV.
--- NOTE | 2019-10-27 17:23 | NUR ---
Completing cares to G-tube and ostomy site with prompts and supervision. Verbalizes more comfort with cares. Was emotional this morning, but more optimistic as day progressed. Pain controlled with PRN Tylenol. Offered to call son to learn about cares. States "he's probably busy doing other things." Informed lots of education with be provide at discharge. Patient believes he is capable of caring for self and could talk son through steps if needed at this point.
--- NOTE | 2019-10-27 18:10 | NUR ---
IV flushes without difficulty. Patient flushes g-tube with 40 ml of tap water with this nurse at bedside. Completes flush without any needed prompt or instruction. States he is very comfortable with going home and caring for self at this point after multiple instructions and doing procedures by self.
--- NOTE | 2019-10-27 19:08 | NUR ---
PATIENT IS LAYING IN BED WATCHING TV.
--- NOTE | 2019-10-27 19:57 | NUR ---
PATIENT RESTING QUIETLY IN BED WATCHING TV AND HAS NO NEEDS AT THIS TIME.
--- NOTE | 2019-10-27 21:56 | NUR ---
VITALS AND I&OS DONE AND CHARTED. BEDSIDE TABLE AND CALL LIGHT IN REACH.
--- NOTE | 2019-10-27 22:05 | NUR ---
PATIENT IN BED AND READY TO GO TO SLEEP PM MEDS GIVEN, PATIENT COMFORTABLE AT THIIS TIME AND NOT WANTING ANYTHING FOR PAIN. SURGICAL SITE LOOKS GOOD AND WELL APPROXIMATED. LIGHTS TURNED DOWN, CALL LIGHT IN REACH.
--- NOTE | 2019-10-28 00:15 | NUR ---
PATIENT GOT UP TO VOID AT BED SIDE AND GOT A SMALL SCIN TEAR ON THE BACK OF HIS RIGHT UPPER LEG AND AN ALLYVEN WAS PLACED OVER IT TO STOP BLEEDING AND KEEPING IT CLEAN. PATIENT BACK IN BED WITH CPAP ON. CALL LIGHT IN REACH.
--- NOTE | 2019-10-28 00:34 | NUR ---
PATIENT RESTING QUIETLY WITH EVEN AND REGULAR RESPIRATIONS IN SEMI-FOWLERS POSITION. EYES CLOSED AND CALL LIGHT IN REACH.
--- NOTE | 2019-10-28 03:34 | NUR ---
PATIENT RESTING QUIETLY, EYES CLOSED, RESPIRATIONS REGULAR AND EVEN, CALL LIGHT IN REACH.
--- NOTE | 2019-10-28 03:42 | NUR ---
PATIENT REMAINS RESTING QUIETLY WITH EYE MASK ON, RESPIRATIONS AND REGULAR AND EVEN, CALL LIGHT IN REACH.
--- NOTE | 2019-10-28 07:39 | NUR ---
0715: Report recieved from Romulo MAZARIEGOS. Pt resting in his bed with no compliants or needs at this time. He states he is planning on going home today and states he feels he has been taught well and will be able to care for his ostomy site. Call srinivasa within reach.
--- NOTE | 2019-10-28 08:03 | NUR ---
PT SITTING UP AT THE BEDSIDE EATING HIS BREAKFAST. HE STATES HE HAS BEEN EATING A SOLID DIET AND TOLERATING IT WELL FOR SEVERAL DAYS NOW. HE STATES HIS ABD PAIN IS A 4 WHICH HE STATES IS TOLERABLE. INCISIONS APPEAR HEALTHY WITHOUT ANY NOTED PROBLEMS. SEE ASSESSMENT.
--- NOTE | 2019-10-28 09:34 | NUR ---
PATIENT IN THE BED RESTING. ATE BREAKFAST. SHOWER OFFERED. PATIENT REFUSED. MORNING DITIES DONE INCLUDING WARM WASHCLOTH AND FRESH WATER. CALL LIGHT IN REACH. NO FURTHER NEEDS AT THIS TIME.
--- NOTE | 2019-10-28 10:40 | NUR ---
Dr. Quintana in seeing pt. Rx for colostomy supplies signed and faxed to [facility] with chart and face sheet. Dr. Quintana will order HH for this patient for education and to monitor ostomy. Progress notes, surgery report, face sheet, face to face, rx for ostomy supplies scanned to [facility].
[2019-10-28] MEDS ORDERED: TYLENOL EXTRA500 MG PO (10:58)
[2019-10-28] MEDS ORDERED: IBUPROFEN600 MG PO (10:58)
[2019-10-28] MEDS ORDERED: METRONIDAZOLE250 MG PO (10:59)
[2019-10-28] MEDS ORDERED: CIPROFLOXACIN500 MG PO (10:59)
[2019-10-28] MEDS ORDERED: LISINOPRIL-HCT1 EACH PO (11:00)
[2019-10-28] MEDS ORDERED: OMEPRAZOLE20 MG PO (11:00)
[2019-10-28] MEDS ORDERED: METFORMIN HCL500 MG PO (11:00)
[2019-10-28] MEDS ORDERED: LASIX20 MG PO (11:01)
[2019-10-28] MEDS ORDERED: POTASSIUM CHLO20 ME1 PO (11:01)
--- NOTE | 2019-10-28 11:02 | NUR ---
Pt states his pain is well controled at a 3 at this time and he denies any new probelms.
--- NOTE | 2019-10-28 13:37 | NUR ---
Call from [employer], they are requesting order number for wafers. Informed we use a kit from [employer] which includes the wafer and the bag. This number was given and she feels she will be able to find in the [employer] book. They have already contacted the patient.
== END 2019-10-28 11:45 | disposition home or self-care (01) | DRG 853 ==
LOC: ED 01:30 → MS 05:18 → CCU 05:18 → MS 10-22 12:15
PROVIDERS: ADMIT Surgery
PROC: 0D9600Z Drainage of Stomach with Drainage Device, Open Approach (ICD-10-PCS; 2019-10-20)
PROC: 3E033XZ Introduction of Vasopressor into Peripheral Vein, Percutaneous Approach (ICD-10-PCS; 2019-10-20)
PROC: 0DJD4ZZ Inspection of Lower Intestinal Tract, Percutaneous Endoscopic Approach (ICD-10-PCS; principal; 2019-10-20 06:30)
PROC: 0DTN0ZZ Resection of Sigmoid Colon, Open Approach (ICD-10-PCS; 2019-10-20 06:30)
PROC: 0DBP0ZZ Excision of Rectum, Open Approach (ICD-10-PCS; 2019-10-20 06:30)
PROC: 0D1N0Z4 Bypass Sigmoid Colon to Cutaneous, Open Approach (ICD-10-PCS; 2019-10-20 06:30)
DX: A41.9 Sepsis, unspecified organism (principal); K65.0 Generalized (acute) peritonitis; K57.20 Diverticulitis of large intestine with perforation and abscess without bleeding; N17.9 Acute kidney failure, unspecified; R65.20 Severe sepsis without septic shock; Q54.9 Hypospadias, unspecified; E86.0 Dehydration; E11.9 Type 2 diabetes mellitus without complications; E78.5 Hyperlipidemia, unspecified; I10 Essential (primary) hypertension; R79.89 Other specified abnormal findings of blood chemistry; Z87.891 Personal history of nicotine dependence; Z53.31 Laparoscopic surgical procedure converted to open procedure; Z88.0 Allergy status to penicillin; Z79.899 Other long term (current) drug therapy; Z79.84 Long term (current) use of oral hypoglycemic drugs
CPT/HCPCS: 00790; 36415; 51798; 71045; 71260; 74176; 74177; 80048; 80053; 81001; 82247; 82465; 83605; 83615; 83690; 83735; 84100; 84478; 84550; 85025; 85379; 85610; 85730; 87040; 87070; 87075; 87076; 87077; 87185; 87186; 87205; 93005; 93010; 93970; 94760; 99285-25; A9270; J0131; J1100; J1170; J1450; J1644; J1885; J2001; J2185; J2250; J2270; J2370; J2405; J2550; J2704; J2795; J3010; J7030; J7050; J7120; J7121; Q9967; U0002

== ENCOUNTER 2020-02-09 13:51 | Inpatient (IN) | payer BC ==
[~2020-02-09] VITALS: Ht 185.4 cm; Wt 102.1 kg
--- NOTE | ~2020-02-09 | DS ---
[facility] [address], [place] [address] Draft ADMISSION DATE: 02/17/2020 DISCHARGE DATE: 02/20/2020 REASON FOR ADMISSION: This 60-year-old white man is a patient of Dr. Eulogio Caballero and presented with extreme sepsis and peritonitis on October 20, 2019, undergoing emergency operation including Jose Miguel's procedure. He had multiple intraabdominal abscesses related to perforated sigmoid diverticulitis. The patient has recovered fully from the sepsis and has undergone colonoscopy several days ago, showing no sign of contraindication to takedown of the colostomy with partial colon resection and anastomosis. He was admitted for that purpose. PHYSICAL EXAMINATION: GENERAL: Tall, white man, who weighs 102 kg. BMI is 29.7. He is 6 feet 1 inch tall. NECK: Shows no thyromegaly or cervical adenopathy. Trachea is midline. CHEST: Clear. HEART: Regular without murmur. ABDOMEN: Flat and soft. A functioning left lower abdominal colostomy was noted. Midline incision is well healed. There is no sign of hernia. EXTREMITIES: Show no clubbing, cyanosis, or edema. HOSPITAL COURSE: On February 17, 2020, he underwent partial colectomy with side-to-end coloproctostomy as method of takedown of the colostomy. Mobilization of splenic flexure was undertaken and lysis of intraabdominal adhesions undertaken. A drain was placed in the pelvis. Intention was for an opiate free hospital experience as much as possible and efforts by the procurement technician included a tap block bilaterally, postoperatively as well as combination of medications, avoiding opiates pre and intraoperatively. Postoperatively, he did quite well. He was maintained with intravenous Toradol and intravenous Tylenol, and only minimal amounts of opiate medication. He was begun on clear liquid diet the night of operation, advanced to full liquids the next day, soon producing bowel movements, and ultimately a solid regular diet. His drain was removed prior to discharge, showing only minimal output. He has had bowel movements and is tolerating oral medication including non-opiate Motrin and Tylenol. By the time of discharge, he is ambulating well, tolerating a regular diet, has minimal incisional pain, and using oral non-opiates for pain relief. PATIENT NAME: HEATHER COREAS DISCHARGE SUMMARY DATE OF : 58 REPORT #: [id number] PHYSICIAN: EULOGIO LARES MD PCP: SAYRA CABALLERO MD REPORT IS CONFIDENTIAL AND NOT TO BE RELEASED WITHOUT AUTHORIZATION [facility] [address] [place] [id number] Draft FOLLOWUP PLAN: Will include see me back in approximately 4 weeks. He will call tomorrow to set up an appointment as today is , the office is closed today. He is advised to lift no more than 20 pounds for the next 4 weeks. He is permitted to shower on a daily basis. Management of the ostomy site will include application of gauze as needed. The wound was only incompletely closed and will epithelialize over the next few weeks. He has no restrictions on his diet. DISCHARGE DIAGNOSES: 1. History of perforated diverticulitis with multiple intraabdominal abscesses in October 2019, status post Jose Miguel's procedure. 2. Takedown of colostomy with partial colectomy with side-to-end coloproctostomy, placement of drain on February 17, 2020. 3. Clinical gastroesophageal reflux. 4. Uov-mjipsly-nwfubrron diabetes mellitus. DISCHARGE MEDICATIONS: Will include: 1. Ibuprofen 600 mg p.o. q.6 hours as needed for pain, #60 refill one. 2. Tylenol 1000 mg p.o. q.6 hours as needed for pain, #60 refill one. He will continue with his usual medications include: 1. Multivitamin daily. 2. Omeprazole 20 mg p.o. daily. 3. Metformin 500 mg p.o. b.i.d. MD RAYNA Astudillo/MODL /[id number] cc: Sayra Caballero MD Copies: SAYRA CABALLERO MD PATIENT NAME: HEATHER COREAS DISCHARGE SUMMARY DATE OF : 58 REPORT #: [id number] PHYSICIAN: EULOGIO LARES MD PCP: SAYRA CABALLERO MD REPORT IS CONFIDENTIAL AND NOT TO BE RELEASED WITHOUT AUTHORIZATION [facility] [address] [place] [address] Draft ~ PATIENT NAME: HEATHER COREAS DISCHARGE SUMMARY DATE OF : 58 REPORT #: [id number] PHYSICIAN: EULOGIO LARES MD PCP: SAYRA CABALLERO MD REPORT IS CONFIDENTIAL AND NOT TO BE RELEASED WITHOUT AUTHORIZATION
[~2020-02-09 13:51] MED LIST changes: +CIPROFLOXACIN500 MG PO; +DICYCLOMINE HCL20 MG PO; +IBUPROFEN600 MG PO; +LASIX20 MG PO; +METRONIDAZOLE250 MG PO; +POTASSIUM CHLO20 ME1 PO; +TYLENOL EXTRA500 MG PO
--- NOTE | 2020-02-17 11:05 | NUR ---
PT ALERT, ORIENTED AND ANXIOUS FOR THIS DAY! PT CONFESSED THAT THE LAST 4 MONTHS HAVE NOT BEEN EASY. GAVE ENCOURAGEMENT, PT REQUESTED PRAYER. YAIR CADET IN TO FINISH PREPPING PT FOR COLOSTOMY REVERSAL SURGERY. WILL FOLLOW
--- NOTE | 2020-02-17 12:32 | NUR ---
02/17/20 1232 [place] 1224 PATIENT ARRIVES TO PACU UNRESPONSIVE TO PAIN. ORAL AIRWAY IN PLACE. RESP EVEN AND UNLABORED, MASK AT 6 LITERS. 1227 PATIENT OPENS EYES, FOLLOWS COMMANDS TO OPEN MOUTH, ORAL AIRWAY REMOVED. RESP EVEN AND UNLABORED, MASK CONTINUED AT 6 LITERS. 1230 PATIENT AWAKE OFF/ON. TEARFUL ON EXAM. WARM BLANKETS GIVEN. RESP EVEN AND UNLABORED, MASK OFF.
--- NOTE | 2020-02-17 13:00 | NUR ---
PT ARRIVED FROM PACU. REPORT RECEIVED FROM HARVINDER MAZARIEGOS. PT RESTING IN BED. CPOX PLACED. PT AT 97% ON ROOM AIR WHILE AWAKE, PT DROPS TO 86% WHILE RESTING. PT OCCLUDING AIRWAY AT TIMES. PT PLACED ON 2L O2 BY NC. THIS RN AWAKENING PT WITH REMINDERS TO BREATH. SNORING NOTED. PT REPORTS 7/10 PAIN IN ABDOMEN "LIKE SOMEONE SLICED ME OPEN." SEE MAR FOR MEDICATION GIVEN. DRESSING TO MIDLINE SHOWS SMALL AMOUNT OF RED DRAINAGE. DRESSING TO LEFT LOWER QUADRANT SHOWS MODERATE AMOUNT OF RED SHADOWING. LEE DRAIN DRAINING RED FLUID, SMALL AMOUNT. IV FLUIDS AND ABX STARTED. PT ORIENTED TO ROOM AND USE OF CALL LIGHT. NO ADDITIONAL REQEUSTS OR COMPLAINTS AT HIS TIME. CALL LIGHT WITHIN REACH. BED RAILS UP.
--- NOTE | 2020-02-17 14:01 | NUR ---
VITALS AND ASSESSMENT DUE. THIS RN HAS BEEN AT PTS BEDSIDE FOR THE LAST HOUR PT IS OCCATIONAL OCCULDING AIRWAY AND HAVING APNIC PERIODS. PT AWAKENS TO VOICE AND TAKES DEEP BREATHS. PT REMAINS ON 1L O2 BY NC WITH O2 SATURATIONS DROPING DURING APNIC PERIODS. PT NOW MORE AWAKE WITH MILD SNORING NOTED DURING SLEEPING PERIODS. VITALS TAKEN. ASSESSMENT DONE. DRESSING TO MID LINE SHOWS NO NEW DRAINAGE. DRESSING TO LEFT LOWER QUADRAINT SHOWS SMALL AMONT OF NEW DRAINAGE NOW 75% SATURATED. MODERATE AMOUNT OF SERIOSANGUINOUS DRAINGE IN LEE BULB. PT REPORS 8/10 PAIN. IV TYLENOL GIVEN. PT RESTING WITH EYES CLOSED. O2 SATURATIONS MAINTINAING ABOVE 92% EVEN WITH SLEEP. NO ADDITIONAL REQUESTS OR COMPLAINS. CALL LIGHT WITHIN REACH. CPOX IN PLACE. BED RAILS UP.
--- NOTE | 2020-02-17 15:11 | NUR ---
VITALS AND ASSESSMENT DUE. PT RESTING WITH EYES CLOSED, MILD SNORING NOTED. O2 AT 94% ON 1L BY NC. PT AWAKENS TO MOVEMENT IN THE ROOM. PT REPORTS 7/10 PAIN IN ABDOMEN. PT REQUESTS ADDITIONAL PAIN MEDICATION, SEE MAR FOR MEDICATION GIVEN. ASSESSMENT DONE. GAUZE DRESSING TO LEFT LOWER QUADRAINT NOW 90% SATURATED. MIDLINE INCISION DRESSING REMAINS UNCHANGED WITH SCANT AMOUNT OF SHADOWING. 30ML SEROUSANGUINOUS DRAINAGE REMOVED FROM LEE DRAIN. 850ML OF URINE REMOVED FROM BOOKER. PT DEMONSTRATES USE OF I.S. REACHING 250ML. PT REPORTS PAIN MEDICATION IS HELPING, PAIN NOW 4/10. ICE CHIPS PROVIDED. PT TOLERATING SIPS OF WATER. NO ADDITIONAL REQUESTS OR COMPLAINS. CALL LIGHT WITHIN REACH.
--- NOTE | 2020-02-17 15:56 | NUR ---
VITALS AND ASSESSMENT DUE. PT AWAKE AND WATCHING TV. PT REPORTS 3/10 PAIN THAT IS "MUCH BETTER." PT WEANED TO ROOM AIR. O2 REMAINS ABOVE 94% ON ROOM AIR. MIDLINE DRESSING REMAINS UNCHANGED WITH SMALL AMOUNT OF SHADOWING. NO NEW SHADOWING NOTED ON LEFT LOWER QUADRANT DRESSING, REMAINS 90% SATURATED. SMALL AMOUNT OF SEROSANGUAINOUS DRAINGE NOTED IN LEE DRAIN. PT TOERLATING SIPS OF WATER AND ICE CHIPS. PT DECLINES ADDITIONAL CLEARS AT THIS TIME. PT DEMONSTRATES USE OF I.S. REACHIGN 2500ML. NO ADDITIONAL REQUESTS OR COMPLAINTS AT THIS TIME. PT CONTINUES WATCHING TV. CALL LIGHT WITHIN REACH.
--- NOTE | 2020-02-17 17:33 | NUR ---
THIS RN TO ROOM TO CHECK ON PT. PT REPORTS PAIN IS CLIMBING UP TO 6/10. SEE MAR FOR MEDICATION GIVEN. PT WATCHING TV. NO ADDITIONAL REQUESTS OR COMPLAINTS. CALL LIGHT WITHIN REACH.
--- NOTE | 2020-02-17 18:30 | NUR ---
THIS RN TO ROOM TO CHECK ON PT. PT REPORTS 5/10 PAIN WHICH HE STATES IS TOLERABLE AT THIS TIME. PT DENIES NEED FOR ADDITIONAL PAIN MEDICATIONS AND DENIES ADDIITONAL REQUESTS OR COMPLAINTS. CALL LIGHT WITHIN REACH. BED RAILS UP.
--- NOTE | 2020-02-17 18:42 | NUR ---
PT POST OP DAY ZERO FOR COLOSTOMY REVERSAL. MIDLINE INCISION WITH SMALL AMOUNT OF SHADOWING NOTED. LEFT LOWER QUADRANT DRESSING 90% SATURATED. LEE DRAIN IN PLACE WITH 30ML REMOVED THIS SHIFT. PT WEANED TO ROOM AIR AND TOLERATING WITH O2 SATURATIONS ABOVE 92%. CPOX IN PLACE. PT DENIES NAUSEA THIS SHIFT. SCHEDULED BLOOD SUGAR CHECKS WITH SLIDING SCALE INSULIN GIVEN. PT TOELRATING CLEAR LIQUID DIET. BOOKER CATHETER IN PLACE. QUANTITY SUFFICIENT. I.S. USE ENSURED. SCD'S IN PLACE. PT USES CALL LIGHT APPROPRIATLY.
--- NOTE | 2020-02-17 20:51 | NUR ---
GOT PT VITALS, LEE AND BOOKER EMPTIED, INTAKE RECORDED, CAM KIRBY TOOK GLUCOSE READING,FRESH ICE WATER GIVEN, CALL LIGHT IN REACH, RN IN FOR ASSESMENT
--- NOTE | 2020-02-17 21:00 | NUR ---
ASSESSMENT COMPLETE, SCHEDULED MEDS GIVEN (SEE EMAR). PT REPORTS TOLERABLE 5/10 PAIN. DENIES NEED FOR PAIN MEDICATION AT THIS TIME. ABD DRESSING INTACT, PEA SIZED SHADOWING, NO NEW SHADOWING SINCE START OF SHIFT. LEE PALUMBO ALSO IN PLACE, DRESSING C/D/I. PT DENIES NAUSEA. IV FLUIDS INFUSING, SITE WNL. CALL LIGHT IN REACH.
--- NOTE | 2020-02-17 22:45 | NUR ---
PRN TYLENOL GIVEN FOR INCREASING PAIN IN ABD (SEE EMAR). NO FURTHER NEEDS, CALL LIGHT IN REACH.
--- NOTE | 2020-02-18 00:23 | NUR ---
PT RESTING [facility] BED WITH EYES CLOSED. RR EVEN AND UNLABORED, CPOX IN PLACE. O2 SAT 93% ON RA, HR WNL. NO DISTRESS NOTED. CALL LIGHT IN EASY REACH OF PT.
--- NOTE | 2020-02-18 02:19 | NUR ---
ASSESSMENT COMPLETE, NO NEW CHANGES OR CONCERNS. PREVIOUS OSTOMY SITE DRESSING CHANGED PER MD ORDERS. PT REPORTS TOLERABLE 5/10 PAIN. PT UP OOB AND AMBULATING IN ROOM, TOLERATING WELL. NO DIZZINESS NOTED, VSS. CPOX IN PLACE. IV FLUIDS AND ABX INFUSING, SITE WNL. PT ALSO DEMONSTRATED USE OF IS, TO VERY TOP. NO FURTHER NEEDS, CALL LIGHT IN REACH.
--- NOTE | 2020-02-18 06:46 | NUR ---
PRN TORADOL GIVEN FOR 7-8/10 PAIN. NO FURTHER NEEDS, CALL LIGHT IN REACH.
--- NOTE | 2020-02-18 07:03 | NUR ---
REPORT RECEIVED FROM YAIR RAMOS. PT REPORTS 7/10 PAIN THAT IS "GETTING A LITTLE BETTER." PT DENIES NAUSEA. PT HAS NO REQUESTS OR COMPLAINTS AT THIS TIME. dRESSING CLEAN DRY AND INTACT, SMALL AMOUNT OF SEROUS ANGUINOUS DRAINAGE NOTED IN LEE DRAIN. CALL LIGHT WITHIN REACH. BED RAILS UP. SCD'S IN PLACE.
--- NOTE | 2020-02-18 08:33 | NUR ---
MORNING ASSESSMENT AND MEDICATION DUE. PT REPORTS / PAIN IN ABDOMEN, PT REPORTS HE STARTED COUGHING AFTER DRINKING SOME WATER AND THAT INCREASED THE PAIN. SEE MAR FOR MEDICATION GIVEN. ASSESSMENT DONE. DRESSINGS C/D/I WITH NO NEW DRAINAGE NOTED. SMALL AMOUNT OF SERIOUS ANGUINOUS DRAINAGE NOTED IN LEE DRAIN. PT PERFORMS CATHETER CARE WITH INSTRUCTION FROM THIS RN. MORNING CARES PERFORMED. PT ENCOURAGED TO AMBULATE AND AGREES "AFTER THE PAIN IS BETTER." BLOOD SUGAR IN 80'S, REGULAR JELLO PROVIDED PER PT REQUEST. PT TOELRATING CLEAR LIQUIDS WITHOUT NAUSEA. NO ADDITIONAL REQUESTS OR COMPLAINTS. CALL LIGHT WITHIN REACH. BED RAILS UP. PT STATES HE WILL CALL "IN ABOUT HALF AN HOUR" TO GO FOR A WALK.
--- NOTE | 2020-02-18 10:13 | NUR ---
PATIENT RESTING IN BED, EYES CLOSED. VITALS AND I&OS CHARTED. BOOKER EMPTIED, CHECKED LEE AMOUT, WILL DRAIN THAT LATER. CALL LIGHT IN REACH
--- NOTE | 2020-02-18 10:27 | NUR ---
THIS RN TO ROOM TO CHECK ON PT. PT REPORTS 6/ PAIN AND AGREES TO GET UP TO AMBULATE. PT STATES PAIN IS TOLERABLE AT THIS TIME. PT UP TO AMBULATE IN GUILLEN X2 LAPS. PT TOELRATES AMBULATION WELL BUT PAIN INCREASES WITH AMBULATION. PT BACK TO ROOM. PT REPORS STINGING PAIN AT OLD STOMA SITE UPT O 01/22. PT USING PURSED LIP BREATHING TO CONTROL PAIN. SEE MAR FOR MEDICATION GIVEN. PT RESTING IN BED. NO ADDITIONAL REQUESTS OR COMLAINTS. CALL LIGHT WITHIN REACH. BED RAILS UP.
--- NOTE | 2020-02-18 11:30 | NUR ---
THIS RN TO ROOM TO CHECK ON PT. PT RESTING WITH EYES CLOSED. AWAKENS TO VOICE. PT REPORTS 4/10 PAIN THAT IS "BETTER." NO ADDITIONAL REQUESTS OR COMPLAINTS. CALL LIGHT WIHTIN REACH. BED RAILS UP. PT ALLOWED TO REST.
--- NOTE | 2020-02-18 13:38 | NUR ---
AFTERNOON ASSESSMENT DUE. PT REPORTS HE HAD "A REALLY GOOD NAP." PT NOW RATES PAIN AT 4/10 AND DENIES NEED FOR PAIN MEDICATION AT THIS TIME. PT DENIES NAUSEA. TOLERATING CLEAR LIQUID DIET AT THIS TIME. ASSESSMENT DONE. DRESSING TO MIDLINE REMAINS UNCHANGED, NO DRAINAGE NOTED TO LEE SITE. 30ML OF SEROANGUINOUS DRAINGE REMOVED FROM LEE DRAIN. DRESSING CHANGE DONE PER MD ORDER TO LEFT ABDOMEN, OLD STOMA SITE. MILD REDNESS NOTED AROUNG SITE. LATERAL ASPECT OF SITE SKIN CLOSEING, MEDIAL ASPECT REMAINS OPEN. GAUZE AND TAPE APPLIED. PT UP TO AMBULATE IN GUILLEN X2 LAPS, TOLERATED WELL. TEA AND WATER PROVIDED PER PT REQUEST. PT DEMONSTRATES USE OF I.S. REACHING 2500ML. NO ADDITIONAL REQUESTS OR COMPLAINTS AT THIS TIME. CALL LIGHT IRENA CHASE.
--- NOTE | 2020-02-18 13:54 | NUR ---
PATEINT AWAKE IN BED. DR IN TO SEE PATIENT. VITALS AND I&OS CHARTED, BOOKER EMPTIED, CALLLIGHT IN REACH
--- NOTE | 2020-02-18 14:30 | NUR ---
REPORT GIVEN TO YARI ZELAYA WHO WILL BE ASSUMING CARE OF PT. QUESTIONS ASKED AND ANSWERED. NATHALIE INTRODUCED TO PT.
--- NOTE | 2020-02-18 14:37 | NUR ---
Toradol 30mg IVP admin for reports of 6/10 abdominal pain.
--- NOTE | 2020-02-18 16:56 | NUR ---
Chand removed per doc order. 9ml of saline removed from balloon prior to removal. Pt tolerated well. Pt due to void.
--- NOTE | 2020-02-18 17:26 | NUR ---
PATIENT UP IN BED, VITALS AND I&OS CHARTED. CALL LIGHT IN REACH, NO OTHER NEEDS
--- NOTE | 2020-02-18 19:20 | NUR ---
SHIFT REPORT RECEIVED FROM NURSE ZELAYA. PT IN BED ALERT AND ORIENTED. PT HAS NOT YET URINATED. NO IMMEDIATE NEEDS AT THIS TIME.
--- NOTE | 2020-02-18 21:30 | NUR ---
ASSESSMENT COMPLETE. PT HAD URINATED 350ML OF CLEAR YELLOW URINE. BANDAGE CHANGE COMPLETE. MIDLINE INCISION WOUND DRESSING IS CDI. LEE TUBE DRAINING APPROPRIATELY. PT STATES HE HAS PAIN OF 4/10 WHICH IS TOLERABLE FOR HIM. NO FURTHER NEEDS AT THIS TIME.
--- NOTE | 2020-02-18 22:33 | NUR ---
PT AMBU IN [place], PT INFORMED US OF BM AND FULL URINAL, EMPTIED AND RECORDED, NO FURTHER REQUESTS AT THIS TIME
--- NOTE | 2020-02-19 02:08 | NUR ---
CALL LIGHT ON. IV FLUIDS DUE, NEW BAG HUNG. NO REQUESTS AT THIS TIME. STATE "I WAS ACTUALLY SLEEPING REALLY WELL UNTIL THAT THING WENT OFF." CALL LIGHT WITHIN REACH.
--- NOTE | 2020-02-19 05:03 | NUR ---
PT HAD A GOOD NIGHT. PT WAS SEEN SLEEPING MUCH OF NIGHT. PT HAD A MEDIUM LIQUID BOWEL MOVEMENT EARLY THIS SHIFT. PT AMBULATES IN GUILLEN INDEPENDENTLY. WOUND DRESSINGS ARE CDI, LEE CONTINUES TO DRAIN SEROSANGUINOUS FLUID. VSS.
--- NOTE | 2020-02-19 05:58 | NUR ---
LEE DRAIN HAS PUT OUT TOTAL OF 80ML OF INCREASINGLY SANGUINOUS FLUID. PT HAD EXCELLENT URINE OUTPUT THIS SHIFT AND ANOTHER LIQUID BM.
--- NOTE | 2020-02-19 07:41 | NUR ---
Pt awake in bed, alert and oriented x4. Pt reports pain is improved. LEE intact to LLQ, patent draining sarosang drainage. Pt reports he did not sleep well last night as he was up frequently voiding. Pt denies needs. Personal supplies and call light within reach.
--- NOTE | 2020-02-19 09:40 | NUR ---
VITALS AND I&OS CHARTED.LEE DRAINED. CALL LIGHT IN REACH
--- NOTE | 2020-02-19 10:17 | NUR ---
PATIENT AMBULATING HALLS. 2X AROUND NURSING STATION. LINENS CHANGED
--- NOTE | 2020-02-19 10:28 | NUR ---
Patient doing well at this time, respirations even and non labored. Pt reports pain is tolerable. Pt recently ambulated in hallway; x2 laps around nurses station. No needs at this time. Call light within reach.
--- NOTE | 2020-02-19 11:20 | OR ---
[facility] [address], [place] [address] Signed DATE OF OPERATION: 02/17/2020 SURGEON: Eulogio Lares MD PREOPERATIVE DIAGNOSES: 1. History of intraabdominal abscess related to perforated diverticulitis, status post Jose Miguel's procedure and drainage of intraabdominal abscess on October 20, 2019. 2. Recent colonoscopy with inflammatory polyp in the region of the colostomy site. POSTOPERATIVE DIAGNOSES: 1. History of intraabdominal abscess related to perforated diverticulitis, status post Jose Miguel's procedure and drainage of intraabdominal abscess on October 20, 2019. 2. Recent colonoscopy with inflammatory polyp in the region of the colostomy site. PROCEDURE: 1. Partial colectomy with side-to-end coloproctostomy. 2. Mobilization of splenic flexure. 3. Lysis of adhesions. 4. Placement of drain. ANESTHESIA: General endotracheal; Cristina Sp, EVENT PROMOTIONS COORDINATOR, and postoperative bilateral TAP blocks. INDICATION: This 60-year-old white man is a patient of Dr. Eulogio Caballero. He presented with extreme sepsis and peritonitis on October 20, 2019, undergoing emergency operation, which included laparoscopy, conversion to open operation for multiple intraabdominal abscesses related to perforated diverticulitis. A Jose Miguel's procedure was performed (sigmoid colectomy with end colostomy with stapling of rectal stump). The patient recovered from his significant sepsis and has recuperated fully from it. He had not undergone colonoscopy in quite some time and a few days ago underwent colonoscopy where he was found to have normal-appearing rectum and minimal portion of the distal sigmoid and the more proximal colon found to be normal except for a few scattered diverticula, but a polypoid lesion just inside the inner table of the abdominal wall. Obviously, the colonoscopy was undertaken per rectum, but also through the colostomy itself. This area was marked with Endo Bonifacio tattoo dye. The final pathology of that lesion showed it to be an inflammatory remnant rather than a polypoid lesion or malignancy. Electronically Signed By: EULOGIO LARES MD 02/19/20 1120 PATIENT NAME: HEATHER COREAS OPERATIVE REPORT DATE OF : 58 REPORT #: [id number] PHYSICIAN: EULOGIO LARES MD PCP: SAYRA CABALLERO MD REPORT IS CONFIDENTIAL AND NOT TO BE RELEASED WITHOUT AUTHORIZATION [facility] [address] [place] [id number] Signed He is here to undergo reversal of the colostomy to include partial colectomy and anastomosis as well as other indicated procedures. An early return after surgery is planned, hoping to avoid opiates as much as possible. The risks of bleeding, infection, anastomotic failure, need for other indicated procedures and other unforeseen complications were reviewed in detail. He understands and wished to proceed. FINDINGS: He had multiple intraabdominal adhesions as might be expected but less than I had anticipated given the extent of his intraabdominal abscesses. Lysis of adhesions was undertaken. The remaining colon was viable. The portion of the distal sigmoid and proximal rectum was excised as well and a side-to-end coloproctostomy undertaken without problem showing good viability of both proximal and distal segments. There were no other findings of concern. The excised portion of colon to the abdominal wall allowed for closure of the abdominal wall defect without problem. DESCRIPTION OF PROCEDURE: The patient was brought to the operating room, given a general endotracheal anesthetic. A full bowel prep had been given including oral antibiotics and IV antibiotics. He had done Fleet enemas at home. A Chand catheter was placed. Note is made of hypospadias, which was significant. The abdomen was clipped and prepared with a chlorhexidine type solution and draped sterilely. An Ioban dressing was applied to keep any colostomy fluid from leaking. A previous midline incision was used extending above the umbilicus inferiorly. Meticulous care was taken to transect the fascia allowing for entry into the abdomen. Omental adhesions were noted to the right of the midline. With meticulous care, the midline incision was opened and intra-abdominal adhesions with small bowel loops were noted. Although, there were fair number of interloop adhesions obstructive in nature. These were taken down with sharp and electrocautery dissection. The Bookwalter retractor was attached to the table. Examination of pelvis showed the rectal stump to have been deviated towards the left pelvis and long Prolene sutures were present well identifying the stump of a distal sigmoid and/or rectum. A Bookwalter retractor was used to provide exposure. The left colon which emanated through the left abdominal wall was freed from local adhesions with sharp dissection and using electrocautery, adhesions to the peritoneal cavity on the abdominal wall were freed up. Ultimately, a ONEYDA 55 mm stapling device was used to transect the colon flush with the abdominal wall. The left colon has some good length, but further mobility was going to be required to provide for pelvic anastomosis. On that basis, using blunt and electrocautery dissection, the white line of Toldt was incised, which had scarred back down and it was Electronically Signed By: EULOGIO LARES MD 02/19/20 1120 PATIENT NAME: HEATHER COREAS OPERATIVE REPORT DATE OF : 58 REPORT #: [id number] PHYSICIAN: EULOGIO LARES MD PCP: SAYRA CABALLERO MD REPORT IS CONFIDENTIAL AND NOT TO BE RELEASED WITHOUT AUTHORIZATION [facility] [address], [place] [address] Signed mobilized quite handly. The left colon that was packed in the upper abdomen, attention turned towards the pelvis. The rectal stump was freed with sharp dissection from the surrounding pelvic adhesions. The long Prolene sutures were markedly helpful in guiding the location of the rectal stump. This was freed from the surrounding soft tissue with blunt and electrocautery dissection ultimately freeing vascular attachments including some portions of rectal mesentery. Once a generous segment was obtained, a right angle bowel clamp was applied to the area. The pelvis was then isolated with laparotomy packs and a side-to-end coloproctostomy was undertaken in the technique of Flor using interrupted 3-0 silk sutures in a 2-layer technique. Mesenteric defect was secured with interrupted 3-0 silk sutures as well. The rectal stump that was redundant had been passed off for final pathology as well. There was no leakage of enteric contents and the prep was markedly good. Irrigation was undertaken. Small bowel was rearranged into the abdomen. Through a left lower quadrant incision, a 7 mm flat Steve drain was placed to the depths of the pelvis. The remaining omentum was passed over the abdominal contents. The midline fascia reapproximated with running bidirectional #1 PDS suture. Subcutaneous tissue was irrigated and skin closed with a running subcuticular 3-0 Vicryl. Steri-Strips were applied as was a silver sponge dressing. Not mentioned previously was closure of the inner table of the abdominal wall. The ostomy had passed through the rectus sheath itself and the peritoneum overlying the ostomy site was freed and the muscular layer reapproximated with running #1 PDS suture. Attention was turned toward excision of the remaining portion of colon within the abdominal wall. Elliptical incision was made around the ostomy site. Once the midline wound was isolated from it with the adherent dressing. Dissection was carried through the subcutaneous tissue with blunt and electrocautery dissection ultimately excising fully the ostomy itself. The staple line was identified and complete excision has been accomplished without spillage of enteric contents. The fascial edge of the rectus sheath was reapproximated with running #1 PDS suture in a transverse configuration. Irrigation was undertaken more fully and a few interrupted 2-0 Vicryl was used in the deep subcutaneous space and 1 or 2 in the deep dermal space to allow for egress of noxious fluid as necessary. Plain gauze was applied to this area. The drain was attached to bulb suction and dressing applied to that site. The patient was later extubated and transferred to the recovery room in good condition having suffered no complications. Sponge, needle, and instrument counts were correct x3. Electronically Signed By: EULOGIO LARES MD 02/19/20 1120 PATIENT NAME: HEATHER COREAS OPERATIVE REPORT DATE OF : 58 REPORT #: [id number] PHYSICIAN: EULOGIO LARES MD PCP: SAYRA CABALLERO MD REPORT IS CONFIDENTIAL AND NOT TO BE RELEASED WITHOUT AUTHORIZATION [facility] [address] [place] [id number] Signed Eulogio Lares MD JM/MODL /[id number] cc: Sayra Caballero MD Copies: SAYRA CABALLERO MD ~ Electronically Signed By: EULOGIO LARES MD 02/19/20 1120 PATIENT NAME: HEATHER COREAS OPERATIVE REPORT DATE OF : 58 REPORT #: [id number] PHYSICIAN: EULOGIO LARES MD PCP: SAYRA CABALLERO MD REPORT IS CONFIDENTIAL AND NOT TO BE RELEASED WITHOUT AUTHORIZATION
--- NOTE | 2020-02-19 12:45 | NUR ---
Tylenol 1000mg po admin for reports of 5/10 abd pain.
--- NOTE | 2020-02-19 14:29 | NUR ---
PATIENT SITTING UP IN BED. VISITOR IN ROOM. VITAL SIGNS AND I&O DONE. CALL LIGHT WITHIN REACH. NO OTHER NEEDS AT THIS TIME
--- NOTE | 2020-02-19 16:00 | NUR ---
WALKING LOOPS AROUND NURSES STATION, IN GOOD SPIRITS, STATES HE IS LOOKING FORWARD TO DINNER.
--- NOTE | 2020-02-19 17:21 | NUR ---
ENJOYING REGULAR DIET TONIGHT, NO NAUSEA OR DISCOMFORT, WATCHING BALL GAME ON TV. DENIES ANY NEEDS.
--- NOTE | 2020-02-19 17:45 | NUR ---
PATIENT AWAKE IN BED, FINISHED WITH DINNER, TOTERATING WELL SO FAR. VITALS AND I&OS CHARTED. LEE DRAINED
--- NOTE | 2020-02-19 19:26 | NUR ---
SHIFT REPORT RECEIVED FROM NURSE CARRANZA. PT IN GOOD SPIRITS AND TALKATIVE. NO REQUESTS AT THIS TIME.
--- NOTE | 2020-02-19 20:30 | NUR ---
TOOK PT VITALS, I&Os ARE DONE, RN IN FOR ASSESMENT AND TO CHECK GLUCOSE READING, NO FURTHER REQUESTS AT THIS TIME
--- NOTE | 2020-02-19 21:30 | NUR ---
ASSESSMENT COMPLETE. PT REPORTS PAIN OF 4/10. LEE DRAINING SMALL AMOUNT SANGUINOUS FLUID. MIDLINE WOUND DRESSING CDI, LEE DRESSING UNCHANGED IN DISCHARGE AMOUNT, OSTOMY TAKE DOWN BANDAGE REFRESHED PER ORDERS. BOWEL TONES ACTIVE. SCDS ON. NO FURTHER NEEDS AT THIS TIME.
--- NOTE | 2020-02-20 00:33 | NUR ---
CALL LIGHT ANSWERED. IV PUMP BEEPING. NEW IV BAG HUNG. PT HAS PAIN OF 7/10 IN LEE INSERTION SITE. PRN MOTRIN PROVIDED. NO FURTHER REQUESTS AT THIS TIME.
--- NOTE | 2020-02-20 05:30 | NUR ---
got vitals, i&os done, emptied urinal, violetta via rn, rn made am assesment, no further requests at this time
--- NOTE | 2020-02-20 05:30 | NUR ---
ASSESSMENT COMPLETE. PT WAS SLEEPING THIS NURSE AND DAYCARE DIRECTOR ENTERED ROOM. URINE OUTPUT EXCELLENT, BOWEL TONES ACTIVE, MINIMAL DRAINAGE FROM LEE DRAIN. LUNGS REMAIN SOMEWHAT DIMINISHED IN BASES. PT REPORTS NO PAIN. NO FURTHER NEEDS AT THIS TIME
--- NOTE | 2020-02-20 09:07 | NUR ---
PATIENT IND IN ROOM. CALL LIGHT IN REACH. RN IN ROM AT THIS TIME. NO FURTHER NEEDS AT [facility].
[2020-02-20] MEDS ORDERED: IBUPROFEN600 MG PO (09:19)
[2020-02-20] MEDS ORDERED: ACETAMINOPHEN500 MG PO (09:19)
== END 2020-02-20 12:25 | disposition home or self-care (01) | DRG 331 ==
LOC: DSVR 02-17 06:55 → MS 02-17 08:30
PROVIDERS: ADMIT Surgery; ATTEND Surgery
PROC: 0DBN0ZZ Excision of Sigmoid Colon, Open Approach (ICD-10-PCS; 2020-02-17)
PROC: 3E0T3BZ Introduction of Anesthetic Agent into Peripheral Nerves and Plexi, Percutaneous Approach (ICD-10-PCS; 2020-02-17)
PROC: 3E0T33Z Introduction of Anti-inflammatory into Peripheral Nerves and Plexi, Percutaneous Approach (ICD-10-PCS; 2020-02-17)
PROC: 0DBP0ZZ Excision of Rectum, Open Approach (ICD-10-PCS; principal; 2020-02-17 08:30)
DX: Z43.3 Encounter for attention to colostomy (principal); G89.18 Other acute postprocedural pain; K21.9 Gastro-esophageal reflux disease without esophagitis; I10 Essential (primary) hypertension; E11.9 Type 2 diabetes mellitus without complications; Z79.899 Other long term (current) drug therapy; Z79.84 Long term (current) use of oral hypoglycemic drugs; Z88.0 Allergy status to penicillin
CPT/HCPCS: 36415; 80048; 85025; 94762; A9270; J0131; J0330; J0595; J0694; J1100; J1170; J1644; J1815; J1885; J2001; J2250; J2405; J2704; J2795; J3475; J7121

== ENCOUNTER 2020-02-10 07:10 | Day surgery (SDC) | payer BC ==
[~2020-02-10] VITALS: Ht 185.4 cm; Wt 103.9 kg
--- NOTE | 2020-02-10 09:31 | NUR ---
02/10/20 0931 Chitra Monique 0928- PT ARRIVES TO PACU AWAKE AND ALERT. RESP EVEN AND UNLABORED. OXYGEN SAT HIGH 90'S TO 100% ON 2L VIA NC. 0931- OXYGEN TITRATED OFF.
--- NOTE | 2020-02-10 10:38 | NUR ---
PT ALERT, ORIENTED AND RECOGNIZED ME FROM PREVIOUS VISIT TO [facility]. PT ADMITTED THE PAST FEW MONTHS HAVE BEEN CHALLENGING, HELPED GETTING BACK TO WORK AND HAVING A ROUTINE AGAIN. PT EXCITED THAT NEXT WEEK IS REVERSAL OF HIS OSTOMY. PTS' OUT LOOK SEEMS POSITIVE, TODAY IS A STEP FOR HIS HEALING. GAVE BLESSING, WILL FOLLOW NEEDED
--- NOTE | 2020-02-13 08:25 | OR ---
[facility] [address] [place], [place] [address] Signed DATE OF OPERATION: 02/10/2020 SURGEON: Eulogio Lares MD PREOPERATIVE DIAGNOSES: 1. History of perforated diverticulitis with multiple intraabdominal abscesses, requiring Jose Miguel's procedure on October 20, 2019. 2. No prior colonoscopy. 3. No family history of colon cancer. POSTOPERATIVE DIAGNOSES: 1. Moderate-size polyp and distal descending colon within inner table of abdomen (biopsied and tattooed). 2. Scattered residual diverticula, left colon. 3. Normal rectum. PROCEDURES: 1. Colonoscopy to cecum via left-sided colostomy with biopsy of polyp and tattoo application. 2. Flexible proctoscopy. ANESTHESIA: Intravenous sedation, 100 mcg of fentanyl and 9 mg of Versed. INDICATION: This 60-year-old white man, who is a patient Dr. Caballero, presented with severe sepsis due to perforated diverticulitis on October 20, 2019. Multiple intraabdominal abscesses were noted. He required Jose Miguel's procedure. The etiology of his sepsis being perforated diverticulitis. He recovered well from this. A G-tube was concurrently placed at that time. The G-tube has been removed since. He is now nearing time for takedown of the colostomy. He has not had colonoscopy in the past. He has no family history of colon cancer. His ostomy has been functioning well. He is admitted at this time to undergo colonoscopy via the colostomy of the left abdomen as well as flexible colonoscopic evaluation of the rectal remnant. He understands the risks of bleeding, infection, and perforation related to both those procedures and wished to proceed. FINDINGS: Colonoscopy via the colostomy showed a few scattered diverticuli. There was a polypoid lesion just on the inner table of the abdominal wall area of the colostomy, which was biopsied and tattooed. The more proximal colon was normal. Electronically Signed By: EULOGIO LARES MD 02/13/20 0825 PATIENT NAME: HEATHER COREAS OPERATIVE REPORT DATE OF : 58 REPORT #: [id number] PHYSICIAN: EULOGIO LARES MD PCP: SAYRA CABALLERO MD REPORT IS CONFIDENTIAL AND NOT TO BE RELEASED WITHOUT AUTHORIZATION [facility] [address], [place] [address] Signed The rectum was essentially normal. No sign of significant diversion colitis at this point. DESCRIPTION OF PROCEDURE: The patient was brought to the endoscopy suite and placed in supine position. He was given intravenous sedation with full cardiopulmonary monitoring. Removal of his ostomy bag, but leaving the remaining appliance was undertaken. The Olympus video colonoscope was passed into the colostomy site in the left lower abdomen and manipulated into the colon with all due care. The scope was advanced and noted were some diverticuli of the left colon. Scope was ultimately advanced to the cecum. The ileocecal valve and appendiceal orifice were normal. Scope was withdrawn from that site and examination showed no sign of abnormality until just inside the inner table of the abdomen where a relatively larger polyp was noted. Although, it was smooth walled, it appeared somewhat suspicious. Multiple biopsies were obtained. Using spot tattooed ink, the site was marked for future reference. The scope was withdrawn through the colostomy, confirming that the lesion was on the inner table of the abdomen most likely. Plans were then made for proctoscopy. Digital rectal examination was normal. An Olympus video colonoscope was passed in the rectum and manipulated into the more proximal rectum and rectosigmoid area. There is no evidence of diversion colitis. The scope was carefully withdrawn. There were no polyps or signs of neoplasm. The scope was removed and the patient was taken to the recovery room in good condition. CONCLUSION DIAGNOSIS: Polyp in the inner table of the distal descending colon, rectum is free. Resection of this polyp; whatever, its ultimately pathology will be undertaken at the time of takedown of colostomy. MD RAYNA Astudillo/MODL /[id number] cc: Sayra Caballero MD Electronically Signed By: EULOGIO LARES MD 02/13/20 0825 PATIENT NAME: HEATHER COREAS OPERATIVE REPORT DATE OF : 58 REPORT #: [id number] PHYSICIAN: EULOGIO LARES MD PCP: SAYRA CABALLERO MD REPORT IS CONFIDENTIAL AND NOT TO BE RELEASED WITHOUT AUTHORIZATION [facility] [address] [facility] [place], [place] [address] Signed Copies: SAYRA CABALLERO MD ~ Electronically Signed By: EULOGIO LARES MD 02/13/20 0825 PATIENT NAME: HEATHER COREAS OPERATIVE REPORT DATE OF : 58 REPORT #: [id number] PHYSICIAN: EULOGIO LARES MD PCP: SAYRA CABALLERO MD REPORT IS CONFIDENTIAL AND NOT TO BE RELEASED WITHOUT AUTHORIZATION
--- NOTE | 2020-02-14 10:17 | PATH ---
[facility] [address] [place], [place] [address] Signed SPECIMEN(S): A DISTAL DESCENDING POLYPOID SPECIMEN SOURCE: A. DISTAL DESCENDING POLYPOID CLINICAL HISTORY: Colonoscopy. History of diverticulitis. Postop: Polyp at distal left colon, diverticulosis. MICROSCOPIC DESCRIPTION: Histologic sections of all submitted blocks are examined by light microscopy. These findings, together with the gross examination, support the pathologic diagnosis. A cytokeratin AE1/AE3 immunostain is performed on block A1, with appropriate controls, and is negative for occult carcinoma. JVR:cml FINAL PATHOLOGIC DIAGNOSIS: Distal left colon, biopsy: - Polypoid granulation type tissue with abundant acute inflammation. - Negative for significant mucosa. - Negative for malignancy. JVR:cml:C2NR GROSS DESCRIPTION: The specimen, labeled "TK," and designated on the requisition "ascending/left distal colon polypoid lesion biopsy," is received in formalin and consists of one fragment of pink-francis tissue (0.4 x 0.3 x 0.3 cm). The specimen is submitted entirely in cassette (A1). AC (under the direct supervision of a pathologist) The Gross Description was prepared using a voice recognition system. The report was reviewed for accuracy; however, sound-alike word errors, addition and/or deletions may occur. If there is any question about this report, please contact Client Services. ADDITIONAL NOTES: Immunohistochemical and/or in situ hybridization studies were performed on this case with the appropriate positive controls that react as expected. This test was developed and its performance characteristics determined by [facility]. It has not been cleared or approved by the U.S. Food and Drug Administration. The FDA has determined that such clearance or approval is not PATIENT NAME: HEATHER COREAS PATHOLOGY DATE OF : 58 REPORT #: [id number] PHYSICIAN: SIN PATHOLOGY PCP: SAYRA ALVAREZ MD REPORT IS CONFIDENTIAL AND NOT TO BE RELEASED WITHOUT AUTHORIZATION [facility] [address] [facility] [place] [place] [address] Signed necessary. This test is used for clinical purposes. It should not be regarded as investigational or for research. [facility] is certified under the Clinical Laboratory Improvement Amendments of 1988 (CLIA) as qualified to perform high complexity clinical laboratory testing. PERFORMING LABORATORY: The technical component was performed by [facility], [address] [place] [address] (Emt/Dispatcher: Ronna Rios MD; CLIA# [id number]). Professional interpretation was performed by [facility], [place] [address] (Emt/Dispatcher: Alex Crum M.D.). Diagnostician: Alex Crum MD Pathologist Electronically Signed 02/14/2020 Copies: ~ PATIENT NAME: HEATHER COREAS PATHOLOGY DATE OF : 58 REPORT #: [id number] PHYSICIAN: SIN GARCIA PCP: SAYRA ALVAREZ MD REPORT IS CONFIDENTIAL AND NOT TO BE RELEASED WITHOUT AUTHORIZATION
== END 2020-02-10 10:00 | disposition home or self-care (01) ==
LOC: DS 07:10 → OPS 07:10 → DS 07:15 → OPS 07:15 → DS 11:15
PROVIDERS: Surgery
PROC: 3E0H8GC Introduction of Other Therapeutic Substance into Lower GI, Via Natural or Artificial Opening Endoscopic (ICD-10-PCS; 2020-02-10)
PROC: 0DBM8ZX Excision of Descending Colon, Via Natural or Artificial Opening Endoscopic, Diagnostic (ICD-10-PCS; principal; 2020-02-10 07:15)
DX: K52.9 Noninfective gastroenteritis and colitis, unspecified (principal); K57.30 Diverticulosis of large intestine without perforation or abscess without bleeding; K62.89 Other specified diseases of anus and rectum; E11.9 Type 2 diabetes mellitus without complications; I10 Essential (primary) hypertension; Z79.899 Other long term (current) drug therapy; Z79.84 Long term (current) use of oral hypoglycemic drugs
CPT/HCPCS: 99153; G0500; J2250; J3010; J7121